=== PATIENT | female | born 1935 | race Caucasian/White ===

== ENCOUNTER → 2018-07-28 | Outpatient (CLI) | payer MEDICARE, BC ==
--- NOTE | 2018-07-28 09:38 | Diagnostic Imaging Report ---
INDICATION: Left hip pain x6 weeks 2 views of the left hip show no fracture or dislocation. Joint spaces well maintained. Articular surfaces are smooth. IMPRESSION: Negative left hip. Dictated by: Dictated on workstation # [id number]
== END ==
LOC: RAD FS 09:22
PROVIDERS: ATTEND Family Medicine
DX: M25.552 Pain in left hip (principal)
CPT/HCPCS: 73502

== ENCOUNTER → 2018-09-14 | Outpatient (CLI) | payer MEDICARE ==
--- NOTE | 2018-09-14 09:11 | Diagnostic Imaging Report ---
INDICATION: Left ankle and foot pain. 3 views were obtained. FINDINGS: The alignment is normal. The plafonds and talar dome are intact. Ankle mortise is symmetric. There is no fracture or dislocation. IMPRESSION: Degenerative changes, however, no acute fracture or dislocation. Dictated by: Dictated on workstation # [id number]
== END ==
LOC: RAD FS 08:37
PROVIDERS: ATTEND Nurse Practitioner
DX: M19.072 Primary osteoarthritis, left ankle and foot (principal)
CPT/HCPCS: 73610

== ENCOUNTER → 2019-10-02 | Outpatient (CLI) | payer MEDICARE ==
--- NOTE | 2019-10-02 12:22 | Diagnostic Imaging Report ---
EXAMINATION: Right shoulder, three views. INDICATION: Right shoulder pain related to fall. COMPARISON: None available. FINDINGS: No fracture or acute osseous abnormality is identified. Bony alignment is maintained. Humeral head is well-seated in the glenohumeral joint. The acromioclavicular joint is intact. Small amorphous calcification adjacent to the greater tuberosity is compatible with calcific tendinopathy. Regional soft tissues are unremarkable. The visualized right lung is clear. IMPRESSION: No acute fracture or dislocation. Dictated by: Dictated on workstation # [id number]
== END ==
LOC: RAD FS 11:33
PROVIDERS: ATTEND Nurse Practitioner
DX: M25.511 Pain in right shoulder (principal)
CPT/HCPCS: 73030

== ENCOUNTER → 2019-10-12 | Outpatient (CLI) | payer MEDICARE ==
[2019-10-12 10:14] LABS: CHLORIDE 104 MMOL/L (98-107); SODIUM 145 MMOL/L (135-145)
[2019-10-12 10:15] LABS: ALANINE AMINOTRANSFERASE 15 U/L (0-55); ALBUMIN 4.2 GM/DL (3.2-4.5); ALKALINE PHOSPHATASE 96 U/L (40-136); BILIRUBIN,TOTAL 0.7 MG/DL (0.1-1.0); BUN/CREATININE RATIO 26; CALCIUM 9.7 MG/DL (8.5-10.1); CARBON DIOXIDE 27 MMOL/L (21-32); CREATININE SERUM 0.74 MG/DL (0.60-1.30); GFR ESTIMATED > 60; GLUCOSE 103 MG/DL (70-105); TOTAL PROTEIN 6.8 GM/DL (6.4-8.2)
[2019-10-12 15:32] LABS: CHOLESTEROL 180 MG/DL (< 200); HDL CHOLESTEROL 61 MG/DL (40-60); TRIGLYCERIDES 84 MG/DL (<150); VLDL CHOLESTEROL 17 MG/DL (5-40)
== END ==
LOC: LAB FS 09:14
PROVIDERS: ATTEND Family Medicine
DX: E78.00 Pure hypercholesterolemia, unspecified (principal); I10 Essential (primary) hypertension
CPT/HCPCS: 36415; 80053; 80061

== ENCOUNTER → 2019-10-15 | Outpatient (CLI) | payer MEDICARE ==
[2019-10-15 10:36] LABS: HEMATOCRIT 44 % (35-52); HEMOGLOBIN 14.7 G/DL (11.5-16.0); MEAN CORPUSCULAR HEMOGLOBIN 31 PG (25-34); MEAN CORPUSCULAR HGB CONC 34 G/DL (32-36); MEAN CORPUSCULAR VOLUME 93 FL (80-99); MEAN PLATELET VOLUME 9.8 FL (7.4-10.4); PLATELET COUNT 281 10^3/uL (130-400); RED CELL DISTRIBUTION WIDTH 12.6 % (10.0-14.5); WHITE BLOOD COUNT 6.1 10^3/uL (4.3-11.0)
[2019-10-15 10:37] LABS: BASOPHILS # (AUTO) 0.1 10^3/uL (0.0-0.1); BASOPHILS % (AUTO) 1 % (0-10); EOSINOPHILS # (AUTO) 0.1 10^3/uL (0.0-0.3); EOSINOPHILS % (AUTO) 2 % (0-10); LYMPHOCYTES # (AUTO) 1.4 X 10^3 (1.0-4.0); LYMPHOCYTES % (AUTO) 23 % (12-44); MONOCYTES # (AUTO) 0.5 X 10^3 (0.0-1.0); MONOCYTES % (AUTO) 8 % (0-12); NEUTROPHILS % (AUTO) 65 % (42-75)
[2019-10-15 15:24] LABS: FREE T4 (FREE THYROXINE) 1.1 NG/DL (0.70-1.48)
== END ==
LOC: LAB FS 09:37
PROVIDERS: ATTEND Family Medicine
DX: R68.83 Chills (without fever) (principal)
CPT/HCPCS: 36415; 84439; 84443; 85025

== ENCOUNTER → 2020-02-14 | Outpatient (CLI) | payer MEDICARE ==
--- NOTE | 2020-02-14 10:58 | Diagnostic Imaging Report ---
Clinical indication: Patient with chronic pain in low back, has gotten worse recently. No known injury. EXAM: X-ray of the lumbar spine, 3 views. COMPARISON: None. FINDINGS: There is a transitional lumbosacral vertebra which will be designated as L5 with prominent bilateral transverse processes. There is a small L5-S1 intervertebral disk space seen. There is no acute lumbar spine fracture. There is subtle grade 1 retrolisthesis of L1 on L2. There is no pars defects seen. There is right curvature of the thoracolumbar spine. There are hypertrophic spurs seen throughout the lumbar spine and lower lumbar spine with facet arthropathy/hypertrophy. There is severe loss of disk space height at the L2-L3 and L4-L5 levels. There is moderate loss of disk space height at the L1-L2 level. Likely radiodense oval-shaped pills overlying the left upper quadrant region. Sacroiliac joints show mild sclerosis. Likely phleboliths seen in the pelvis. IMPRESSION: 1: There is no gross acute lumbar spine fracture. 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 3: There is grade 1 retrolisthesis of L1 on L2. Dictated by: Dictated on workstation # [id number]
== END ==
LOC: RAD FS 09:12
PROVIDERS: ATTEND Nurse Practitioner
DX: M47.816 Spondylosis without myelopathy or radiculopathy, lumbar region (principal); M43.8X5 Other specified deforming dorsopathies, thoracolumbar region; M43.16 Spondylolisthesis, lumbar region
CPT/HCPCS: 72100

== ENCOUNTER → 2020-04-11 | Outpatient (CLI) | payer MEDICARE ==
[2020-04-11 12:03] LABS: BUN/CREATININE RATIO 21; CALCIUM 9.4 MG/DL (8.5-10.1); CARBON DIOXIDE 26 MMOL/L (21-32); CHLORIDE 105 MMOL/L (98-107); CREATININE SERUM 0.73 MG/DL (0.60-1.30); GFR ESTIMATED > 60; GLUCOSE 91 MG/DL (70-105); POTASSIUM 3.5 MMOL/L (3.6-5.0); SODIUM 144 MMOL/L (135-145)
[2020-04-11 12:04] LABS: ALANINE AMINOTRANSFERASE 21 U/L (0-55); ALBUMIN 4.1 GM/DL (3.2-4.5); ALKALINE PHOSPHATASE 85 U/L (40-136); BILIRUBIN,TOTAL 0.7 MG/DL (0.1-1.0); TOTAL PROTEIN 6.6 GM/DL (6.4-8.2)
[2020-04-11 14:46] LABS: CHOLESTEROL 177 MG/DL (< 200); HDL CHOLESTEROL 61 MG/DL (40-60); TRIGLYCERIDES 113 MG/DL (<150); VLDL CHOLESTEROL 23 MG/DL (5-40)
== END ==
LOC: LAB FS 11:23
PROVIDERS: ATTEND Family Medicine
DX: I10 Essential (primary) hypertension (principal); E78.00 Pure hypercholesterolemia, unspecified
CPT/HCPCS: 36415; 80053; 80061

== ENCOUNTER → 2020-10-09 | Outpatient (CLI) | payer MEDICARE ==
[2020-10-09 12:47] LABS: ALKALINE PHOSPHATASE 84 U/L (40-136); BILIRUBIN,TOTAL 0.7 MG/DL (0.1-1.0); BUN/CREATININE RATIO 25; CALCIUM 9.8 MG/DL (8.5-10.1); CARBON DIOXIDE 28 MMOL/L (21-32); CHLORIDE 105 MMOL/L (98-107); CREATININE SERUM 0.84 MG/DL (0.60-1.30); GFR ESTIMATED > 60; GLUCOSE 96 MG/DL (70-105); POTASSIUM 3.8 MMOL/L (3.6-5.0); SODIUM 141 MMOL/L (135-145)
[2020-10-09 12:48] LABS: ALANINE AMINOTRANSFERASE 19 U/L (0-55); ALBUMIN 4.3 GM/DL (3.2-4.5); TOTAL PROTEIN 6.9 GM/DL (6.4-8.2)
[2020-10-09 15:55] LABS: TRIGLYCERIDES 96 MG/DL (<150); VLDL CHOLESTEROL 19 MG/DL (5-40)
[2020-10-09 16:00] LABS: CHOLESTEROL 180 MG/DL (< 200)
[2020-10-09 16:01] LABS: HDL CHOLESTEROL 65 MG/DL (40-60)
== END ==
LOC: LAB FS 11:39
PROVIDERS: ATTEND Family Medicine
DX: I10 Essential (primary) hypertension (principal)
CPT/HCPCS: 36415; 80053; 80061

== ENCOUNTER → 2020-12-22 | Outpatient (CLI) | payer MEDICARE ==
--- NOTE | 2020-12-22 10:42 | Diagnostic Imaging Report ---
INDICATION: Knee pain. No previous. 3 view right knee showed no loose body or evidence of a joint effusion. There is a moderate medial and mild lateral compartmental osteoarthritis. Minimal spurring off the inferior patellar pole. No acute periosteal reaction. No fracture and no articular irregularity. IMPRESSION: Degenerative changes with no joint effusion, loose body, fracture or acute findings. Dictated by: Dictated on workstation # [id number]
== END ==
LOC: RAD FS 09:14
PROVIDERS: ATTEND Nurse Practitioner
DX: M17.11 Unilateral primary osteoarthritis, right knee (principal)
CPT/HCPCS: 73562

== ENCOUNTER → 2021-02-18 | Outpatient (CLI) | payer MEDICARE | END | disposition home or self-care (01) | LOC: PREOP 05:37 | PROVIDERS: ATTEND Orthopaedic Surgery | DX: Z01.818 Encounter for other preprocedural examination (principal) ==

== ENCOUNTER 2021-03-04 07:25 | Day surgery (SDC) | payer MEDICARE ==
--- NOTE | 2021-02-18 12:24 | HISTORY AND PHYSICAL ---
DATE OF SERVICE: ADMISSION HISTORY AND PHYSICAL DATE OF ADMISSION: 03/04/2021. This will be for outpatient surgery on 03/04/2021 for right knee arthroscopy. HISTORY OF PRESENT ILLNESS: The patient is an 85-year-old female with complaints of right knee pain. She has had progressively worsening pain. Ultimately, she underwent an MRI, which revealed evidence of a medial meniscus tear with some degenerative changes noted of her medial compartment. Due to functional impairment and failure to improve with conservative measures, the patient elected to proceed with surgical intervention. REVIEW OF SYSTEMS: No chest pain, no shortness of breath, and no dysuria. PAST MEDICAL HISTORY: Back pain, hyperlipidemia, hypertension, osteoarthritis, hypokalemia, TMJ, Fuchs's esophagitis, and cerebral venous sinus thrombosis. PAST SURGICAL HISTORY: Hysterectomy. FAMILY HISTORY: Noncontributory. PRIMARY CARE PROVIDER: Dr. Esquivel. MEDICATIONS: Benadryl, aspirin, cyclobenzaprine, Flonase, Mobic, atorvastatin, calcium, and potassium. ALLERGIES: SULFA, ENALAPRIL, HYDROCODONE, MEPERIDINE, OXYCODONE, ZITHROMAX, IV DYE, ULTRAM, BEULAH INHIBITORS, DEMEROL, and CEFDINIR. SOCIAL HISTORY: The patient denies alcohol, tobacco use. RADIOGRAPHS: Reveal mild osteoarthritic changes medially. PHYSICAL EXAMINATION: GENERAL: The patient is well-developed, well-nourished, in no acute distress. HEENT: Normocephalic, atraumatic. Pupils are equal, round and reactive to light. Oropharynx is clear. NECK: Supple with no lymphadenopathy. LUNGS: Clear to auscultation bilaterally. HEART: Regular rate and rhythm. ABDOMEN: Soft, nontender, and nondistended. EXTREMITIES: The right knee demonstrates some mild effusion. She has tenderness medially with Ramon's as well as to palpation along her joint line. Range of motion is 0/0/130. No varus or valgus laxity. Negative anterior and posterior drawer. IMPRESSION: Right knee medial meniscus tear with associated chondromalacia. PLAN: Right knee arthroscopy with partial medial meniscectomy and chondroplasty. The risks, benefits, options, ramifications and recovery were discussed at length with the patient. She understands and wishes to proceed. Job ID: [id number] DocumentID: [id number] Dictated Date: 02/18/2021 11:54:12 Tower Hand Date: 02/18/2021 12:24:18 Dictated By: HODAN WILLSON MD
[~2021-03-04] VITALS: Ht 157 cm; Wt 61.7 kg
[2021-03-04] VITALS (11 sets, daily range): BP systolic 135–167; BP diastolic 66–80
[~2021-03-04 07:25] MED LIST: AMLO-250 PO; ASPI-999 PO; ATOR10TA66 PO; CALC-654 PO; MULT-1029 PO; OMG1KC PO; POTA-51 PO
--- OUTSIDE RECORDS SUMMARY | 2021-03-04 07:29 | XMS REPORT | Clinical Summary ---
Author Author [facility] Organization [facility] Address Unknown Phone Unavailable Care Team Providers Care Hospital Admissions Officer Name Role Phone Prasanth Hutchinson MD PCP Unavailable Source Comments Some departments are not documenting in the electronic medical record. If you d o not see the information that you expected, contact Release of Information in [facility] Information Management department at [phone] for further assistan ce in locating additional records.[facility] Allergies Not on File Medications Not on file Active Problems Not on file Social History Date Tobacco Use Types Packs/Day Years Used Never Assessed Sex Assigned at Date Recorded Not on file Last Filed Vital Signs Not on file Plan of Treatment Health Maintenance Due Date Last Done Comments DTAP/TDAP VACCINES (1 - 1953 Tdap) PHYSICAL (COMPREHENSIVE) 1953 EXAM SHINGLES RECOMBINANT 1985 VACCINE (1 of 2) PNEUMONIA (PPSV23) 2000 VACCINE (1 of 1 - PPSV23) INFLUENZA VACCINE 01/04/2021 Results Not on filefrom Last 3 Months
--- OUTSIDE RECORDS SUMMARY | 2021-03-04 07:29 | XMS REPORT | Clinical Summary ---
Author Author [facility] Organization [facility] Address Unknown Phone Unavailable Care Team Providers Care Credit Manager Name Role Phone Maisha Esquivel MD PCP Allergies Not on File Medications Not on file Active Problems Not on file Social History Date Tobacco Use Types Packs/Day Years Used Never Assessed Sex Assigned at Date Recorded Not on file Last Filed Vital Signs Not on file Plan of Treatment Health Maintenance Due Date Last Done Comments Advance Directive has 1935 been filed Medicare Annual Wellness 1935 Td/Tdap# 1935 COVID-19 Vaccine (1) 1947 Zoster Vaccine# (1 of 2) 1985 Advance Directive 2000 Conversation Depression Screening 2000 PHQ-9 # Fall Risk Assessment # 2000 Osteoporosis Screening 2000 Patient Needs Advance 2000 Directive Influenza Vaccine (#1) 2021 03/16/2019, 03/13/2018, 03/11/2017, Additional history exists Pneumococcal Vaccine: 65+ Completed 02/24/2015, Years 05/04/2012 Results Not on filefrom Last 3 Months Insurance Type Payer Benefit Subscriber ID Effective Phone Address Plan / Dates Group Medicare MEDICARE MEDICARE [id number] 2000- [place] PART A B [facility] OUT OF [id number] [id number] AREA resent [id number] Ellie Hollis Personal/F Self [address] [place] (Home) [place], [place] [address] Ellie Hollis Personal/F Self [address] [place] (Home) [place], [place] [address] Advance Directives For more information, please contact: [phone] Patient Record Changer Explanation Type Date Recorded Advance Directives and Living Will Power of Inspector Subassembly Health Care Directive
[2021-03-04] MEDS ORDERED: ceFAZolin INJECTION 1,000 MG in WATER (STERILE) FOR INJECTION 10 ML IV ONE (07:45)
[2021-03-04] MEDS ORDERED: LACTATED RINGERS 1,000 ML IV PRN (07:45)
[2021-03-04] MEDS ORDERED: ONDANSETRON 4 MG (ZOFRAN) ORAL DISSOLVE TAB PO PRN (08:00)
[2021-03-04] MEDS ORDERED: APAP 300 MG/CODEINE 30 MG (TYLENOL #3) TAB PO PRN (08:00)
[2021-03-04] MEDS ORDERED: ONDANSETRON 4 MG/2 ML (SDV) Z0FRAN ONE (08:25)
[2021-03-04] MEDS ORDERED: proPOfol 200 MG/20 ML (DIPRIVAN) VIAL IV ONE (08:25)
[2021-03-04] MEDS ORDERED: LIDOCAINE PF 2% 5 ML (XYLOCAINE) VIAL ONE (08:25)
[2021-03-04] MEDS ORDERED: BUPIVACAINE 0.25% 30 ML (SENSORCAINE) VIAL ONE (09:31)
[2021-03-04] MEDS ORDERED: morphine PF (DURAMORPH) 10 MG/10 ML AMP ONE (09:31)
--- NOTE | 2021-03-04 09:39 | Progress Note-Pre Operative ---
Pre-Operative Progress Note H&P Reviewed The H&P was reviewed, patient examined and no changes noted. Date Seen by Provider: Mar 04, 2021 Time Seen by Provider: :30 Date H&P Reviewed: Mar 04, 2021 Time H&P Reviewed: 09:39 Pre-Operative Diagnosis: right medial meniscus tear and chondromalacia HODAN WILLSON MD Mar 04, 2021 09:39
[2021-03-04] MEDS ORDERED: fentaNYL INJ 100 MCG/2 ML AMP ONE (09:40)
--- NOTE | 2021-03-04 09:41 | Progress Note-Post Operative ---
Post-Operative Progess Note Surgeon (s)/Meat Cutter Apprentice (s) Surgeon HODAN WILLSON MD Meat Cutter Apprentice: Baljeet De Souza Pre-Operative Diagnosis right medial meniscus tear and chondromalacia Post-Operative Diagnosis right medial and lateral meniscus tears and chondromalacia of the patella and medial tibail plateau Procedure & Operative Findings Date of Procedure 03/04/21 Procedure Performed/Findings right knee arthroscopic partial medial and lateral meniscectomies and chondroplasty of patella and medial tibail plateau Anesthesia Type GETA Estimated Blood Loss Estimated blood loss (mL): minimal Specimens/Packing Specimens Removed none Packing: none HODAN WILLSON MD Mar 04, 2021 09:41
[2021-03-04] MEDS ORDERED: SEVOFLURANE (ULTANE) 15 ML INHAL SOLN ONE (10:18)
--- NOTE | 2021-03-04 12:06 | Anesthesia-General Post-Op ---
General Patient Condition Mental Status/LOC: Same as Preop Cardiovascular: Satisfactory Nausea/Vomiting: Absent Respiratory: Satisfactory Pain: Controlled Complications: Absent Post Op Complications Complications None Follow Up Care/Instructions Patient Instructions None needed. Anesthesia/Patient Condition Patient Condition Patient is doing well, no complaints, stable vital signs, no apparent adverse anesthesia problems. No complications reported per nursing. CARMINA BUSTAMANTE CRNA Mar 04, 2021 12:06
--- NOTE | 2021-03-04 13:26 | Physical Therapy Ortho Eval ---
PT Orthopedic Evaluation Type of Surgery Knee Scope Prior Level of Function Current Living Status: Alone Subjective Entry Into Home: Stairs With Railing Steps Into Home: 3 Steps Inside Home: 15 Steps Accessories: Railing Present Motor Control Motor Control: Motor Control WNL ROM ROM: WFL, except focal deficit Strength Strength: WFL Transfer SCALE: Activities may be completed with or without assistive devices. 8-Aoptvowlvq-fgyjhdx completes the activity by him/herself with no assistance from a helper. 5-Set-up or Clean-up Assistance-helper sets up or cleans up; patient completes activity. [place] assists only prior to or following the activity. 4-Supervision or Touching Assistance-helper provides verbal cues and/or touching/steadying and/or contact guard assistance as patient completes activity. Assistance may be provided throughout the activity or intermittently. 3-Partial/Moderate Assistance-helper does LESS THAN HALF the effort. [place] lifts, holds or supports trunk or limbs, but provides less than half the effort. 2-Substantial/Maximal Assistance-helper does MORE THAN HALF the effort. [place] lifts or holds trunk or limbs and provides more than half the effort. 0-Acpbijzwj-vpikoq does ALL the effort. Patient does none of the effort to complete the activity. Or, the assistance of 2 or more helpers is required for the patient to complete the activity. If activity was not attempted, code reason: 7-Patient Refused. 9-Not Applicable-not attempted and the patient did not perform the activity before the current illness, exacerbation or injury. 10-Not Attempted due to Environmental Limitations-(lack of equipment, weather restraints, etc.). 88-Not Attempted due to Medical Conditions or Safety Concerns. Transfers (B, C, W/C) (QC): 6 Gait Gait Assistive Device: Crutches Right Lower Extremity: Right Weight Bearing Status RLE: Weight Bearing/Tolerated Left Lower Extremity: Left Weight Bearing Status LLE: Weight Bearing/Tolerated Gait (QC): 5 Distance (QC): 3=081-09 ft Distance: 100 feet Gait Level of Assist: 5 Treatment Rendered Treatment: Gait Train, Step Train Assessment/Goals Goal Time Frame: 1 Visit Safe Ambulation: Yes Plan Treatment Plan: Discharge Time Time In: 1155 Time Out: 1215 Total Billed Treatment Time: 20 Billed Treatment Time Visit, Zoey Gandara JOHN A PT Mar 04, 2021 13:26
--- NOTE | 2021-03-04 15:50 | OPERATIVE REPORT ---
DATE OF SERVICE: 03/04/2021 PREOPERATIVE DIAGNOSES: 1. Right knee medial meniscus tear. 2. Right knee chondromalacia of the patella. POSTOPERATIVE DIAGNOSES: 1. Right knee medial meniscus tear. 2. Right knee lateral meniscus tear. 3. Right knee chondromalacia of the patella. 4. Right knee chondromalacia of the medial tibial plateau. PROCEDURES: 1. Right knee arthroscopic partial medial meniscectomy. 2. Right knee arthroscopic partial lateral meniscectomy. 3. Right knee arthroscopic chondroplasty of the patella. 4. Right knee arthroscopic chondroplasty of the medial tibial plateau. SURGEON: Louis Willson MD CIRCUS TRAINER: Baljeet De Souza, who assisted throughout the procedure and closed the incisions. ANESTHESIA: General endotracheal by Thao Mulligan CRNA. TOURNIQUET TIME: Nonfocal. ESTIMATED BLOOD LOSS: Minimal. DRAINS: None. COMPLICATIONS: None. POSTOPERATIVE PLAN: Routine arthroscopy protocol. The patient was transferred to the recovery room awake and in stable condition. STATEMENT OF MEDICAL NECESSITY: The patient is an 85-year-old female with complaints of right medial knee pain, catching, locking and swelling. Radiographs revealed minimal arthrosis. It was felt the patient likely had medial meniscus tear with associated chondromalacia. Due to her active lifestyle in the independent living status, she elected to proceed with arthroscopy. Examination under anesthesia revealed range of motion 0/0/130 with negative Eddie, negative anterior and posterior drawer. No varus or valgus laxity and negative pivot shift. ARTHROSCOPIC FINDINGS: The patella demonstrated grade II chondral flaps in a 15 x 15 area centrally. The trochlea demonstrated no significant chondral abnormalities. Medial and lateral gutters were clear. The ACL and PCL were intact. The medial compartment demonstrated a tear of the posterior horn and body of the medial meniscus involving approximately one-third of the posterior horn and body. In addition, there was grade III chondral flap in the posterior aspect of the tibial plateau in an 8 x 8 area. The lateral compartment demonstrated a tear of the body of the meniscus involving approximately one-third of the body. DESCRIPTION OF PROCEDURE: After risks and benefits of procedure were discussed and questions were answered, informed consent was signed and placed on chart. The operative site was confirmed in the preoperative holding area initialed by the surgeon. The patient was then transferred to the operating room and after adequate levels of general endotracheal anesthetic were obtained, a timeout was called, confirming the operative site. Examination under anesthesia was performed with above findings noted. The right lower extremity was prepped and draped in the usual sterile fashion. The knee joint was injected with 60 mL of fluid and standard inferolateral portal was placed for the arthroscope. Under direct visualization, inferior medial portal was created. The menisci and cruciates were carefully probed with the above findings noted. Then, stable chondral flaps on the patella were debrided with shaver back to a stable edge. Scope was redirected into the lateral compartment where the unstable lateral meniscus tear was debrided with a shaver back to a stable edge. Scope was redirected into the medial compartment and the unstable chondral flaps and medial tibial plateau were debrided with a shaver back to a stable edge and the posterior horn and body of the medial meniscus were debrided with a biter and shaver back to a stable edge. This was carefully probed with no further tearing or instability noted. The knee was copiously irrigated. Portal sites were closed with 4-0 nylon in septic fashion. Port sites were infiltrated with plain Marcaine. A soft dressing was applied. The patient was transferred to the recovery room awake and in stable condition. Job ID: [id number] DocumentID: [id number] Dictated Date: 03/04/2021 10:30:27 Automotive Assembler Date: 03/04/2021 15:49:41 Dictated By: LOUIS WILLSON MD
== END 2021-03-04 13:08 | disposition home or self-care (01) ==
LOC: SDC 07:25
PROVIDERS: ATTEND Orthopaedic Surgery
DX: S83.241A Other tear of medial meniscus, current injury, right knee, initial encounter (principal); S83.281A Other tear of lateral meniscus, current injury, right knee, initial encounter; M22.41 Chondromalacia patellae, right knee; I10 Essential (primary) hypertension; E78.5 Hyperlipidemia, unspecified; M19.90 Unspecified osteoarthritis, unspecified site; Z79.899 Other long term (current) drug therapy; Z79.82 Long term (current) use of aspirin
CPT/HCPCS: 87081

== ENCOUNTER → 2021-04-20 | Outpatient (CLI) | payer MEDICARE ==
[2021-04-20 08:58] LABS: ALBUMIN 4.3 GM/DL (3.2-4.5); BILIRUBIN,TOTAL 0.6 MG/DL (0.1-1.0); CREATININE SERUM 0.77 MG/DL (0.60-1.30); POTASSIUM 3.7 MMOL/L (3.6-5.0)
== END ==
LOC: LAB FS 08:22
PROVIDERS: ATTEND Family Medicine
DX: I10 Essential (primary) hypertension (principal)
CPT/HCPCS: 36415; 80053; 80061

== ENCOUNTER → 2021-10-14 | Outpatient (CLI) | payer MEDICARE ==
[2021-10-14 09:30] LABS: ALBUMIN 4.3 GM/DL (3.2-4.5); BILIRUBIN,TOTAL 0.8 MG/DL (0.1-1.0); CALCIUM 9.5 MG/DL (8.5-10.1); CREATININE SERUM 0.72 MG/DL (0.60-1.30); POTASSIUM 3.7 MMOL/L (3.6-5.0)
== END ==
LOC: LAB FS 08:18
PROVIDERS: ATTEND Family Medicine
DX: Z00.01 Encounter for general adult medical examination with abnormal findings (principal); E78.2 Mixed hyperlipidemia; I10 Essential (primary) hypertension
CPT/HCPCS: 36415; 80053; 80061

== ENCOUNTER → 2021-11-20 | Outpatient (CLI) | payer MEDICARE ==
--- NOTE | 2021-11-20 09:20 | Diagnostic Imaging Report ---
Indication: Neck pain. Time of Exam: 8:37 AM 5 views of the cervical spine were obtained. There is some straightening of the normal cervical lordotic curvature. There is minimal retrolisthesis of C5 on C6. There is minimal anterolisthesis of C3 on C4 on the neutral study. Severe degenerative disc disease at C5-C6 and C6-C7 levels is noted with disc space narrowing and marginal spurring. Flexion-extension views were also performed. The flexion view does show minimal increase in anterolisthesis of C3 on C4. This corrects during extension. No other motion is seen within the cervical spine. Odontoid appears intact. IMPRESSION: Cervical spondylosis. There appears to be motion at the C3-C4 level during flexion and extension maneuvers, as described. Dictated by: Dictated on workstation # [id number]
== END ==
LOC: RAD FS 08:25
PROVIDERS: ATTEND Nurse Practitioner
DX: M47.812 Spondylosis without myelopathy or radiculopathy, cervical region (principal)
CPT/HCPCS: 72050

== ENCOUNTER → 2021-12-13 | Outpatient (CLI) | payer MEDICARE | LOC: LAB 07:56 | DX: Z01.812 Encounter for preprocedural laboratory examination (principal); Z20.822 Contact with and (suspected) exposure to COVID-19 | CPT/HCPCS: 87636 ==

== ENCOUNTER → 2022-02-15 | Outpatient (CLI) | payer MEDICARE ==
--- NOTE | 2022-02-15 11:57 | Diagnostic Imaging Report ---
PROCEDURE: CT abdomen and pelvis without contrast. TECHNIQUE: Multiple contiguous axial images were obtained through the abdomen and pelvis without the use of intravenous contrast. Auto Exposure Controls were utilized during the CT exam to meet ALARA standards for radiation dose reduction. INDICATION: Lower abdominal pain, worse in the left lower quadrant. No prior studies are available for comparison. The lung bases are free of acute infiltrates. Liver and gallbladder are unremarkable. There is no biliary duct dilatation. Pancreas and spleen are unremarkable. No adrenal mass is identified. No renal calculi or hydronephrosis is identified. Aorta is calcified but nonaneurysmal. Bowel loops are nonobstructed. There is wall thickening involving the descending colon and near the junction with the sigmoid with surrounding inflammation. Features are consistent with nonspecific colitis/diverticulitis. No fluid collection or free fluid is seen. Bladder is decompressed. Uterus appears to be absent or atrophic. IMPRESSION: Findings consistent with a nonspecific colitis/acute diverticulitis near the junction of the descending colon and sigmoid. No abscess formation or bowel obstruction is identified. Dictated by: Dictated on workstation # [id number]
== END ==
LOC: RAD FS 11:23
PROVIDERS: ATTEND Registered Nurse Emergency
DX: R10.32 Left lower quadrant pain (principal)
CPT/HCPCS: 74176

== ENCOUNTER → 2022-02-15 | Outpatient (CLI) | payer MEDICARE ==
[2022-02-15 11:01] LABS: BASOPHILS # (AUTO) 0.1 10^3/uL (0.0-0.1); BASOPHILS % (AUTO) 0 % (0-10); EOSINOPHILS % (AUTO) 0 % (0-10); HEMATOCRIT 42 % (35-52); HEMOGLOBIN 14.2 g/dL (11.5-16.0); LYMPHOCYTES # (AUTO) 1.4 10^3/uL (1.0-4.0); LYMPHOCYTES % (AUTO) 13 % (12-44); MEAN CORPUSCULAR HEMOGLOBIN 31 pg (25-34); MEAN CORPUSCULAR HGB CONC 34 g/dL (32-36); MEAN CORPUSCULAR VOLUME 93 fL (80-99); MEAN PLATELET VOLUME 9.7 fL (9.0-12.2); MONOCYTES % (AUTO) 9 % (0-12); NEUTROPHILS # (AUTO) 8.7 10^3/uL (1.8-7.8); NEUTROPHILS % (AUTO) 78 % (42-75); PLATELET COUNT 227 10^3/uL (130-400); WHITE BLOOD COUNT 11.2 10^3/uL (4.3-11.0)
[2022-02-15 11:30] LABS: CREATININE SERUM 0.75 MG/DL (0.60-1.30); POTASSIUM 3.4 MMOL/L (3.6-5.0)
[2022-02-15 11:31] LABS: ALBUMIN 3.9 GM/DL (3.2-4.5); BILIRUBIN,TOTAL 1.4 MG/DL (0.1-1.0)
== END ==
LOC: LAB FS 10:49
PROVIDERS: ATTEND Registered Nurse Emergency
DX: I10 Essential (primary) hypertension (principal); R10.32 Left lower quadrant pain
CPT/HCPCS: 36415; 80053; 83690; 85025

== ENCOUNTER 2022-02-22 17:39 | Inpatient (IN) | payer MEDICARE ==
[~2022-02-22] VITALS: Ht 157 cm; Wt 60.7 kg
[~2022-02-22 17:39] MED LIST changes: -CALC1TAB PO; -CALC500T7 PO; -CIPR500T5 PO; -DIPH25TA65 PO; -DOCU100T7 PO; -FEXO180T84 PO; -FLUT9.9S NSEACH; -IBUP200C11 PO; -MELO15TA39 PO; -METR-145 PO; -NAPR220T66 PO; -OLOP2.5D12 OU; -OMEG12002 PO; -POTA-160 PO; -PROP10DR4 OU; -SODI50SP NSEACH
[2022-02-22] MEDS ORDERED: LACTATED RINGERS 1,000 ML IV ONE (18:00)
[2022-02-22] MEDS ORDERED: LIDOCAINE UROJET 2% GEL 10 ML PKG TOP ONE (18:00)
[2022-02-22 18:07] LABS: BASOPHILS # (AUTO) 0.1 10^3/uL (0.0-0.1); BASOPHILS % (AUTO) 1 % (0-10); EOSINOPHILS # (AUTO) 0.1 10^3/uL (0.0-0.3); EOSINOPHILS % (AUTO) 1 % (0-10); HEMATOCRIT 42 % (35-52); LYMPHOCYTES # (AUTO) 1.6 10^3/uL (1.0-4.0); LYMPHOCYTES % (AUTO) 16 % (12-44); MEAN CORPUSCULAR HEMOGLOBIN 31 pg (25-34); MEAN CORPUSCULAR HGB CONC 33 g/dL (32-36); MEAN CORPUSCULAR VOLUME 92 fL (80-99); MEAN PLATELET VOLUME 9.5 fL (9.0-12.2); MONOCYTES # (AUTO) 1.1 10^3/uL (0.0-1.0); MONOCYTES % (AUTO) 11 % (0-12); NEUTROPHILS % (AUTO) 71 % (42-75); PLATELET COUNT 381 10^3/uL (130-400); WHITE BLOOD COUNT 9.9 10^3/uL (4.3-11.0)
[2022-02-22] MEDS ORDERED: ONDANSETRON 4 MG/2 ML (SDV) Z0FRAN IVP ONE (18:15)
[2022-02-22 18:16] LABS: INR 1.1 (0.8-1.4); PROTHROMBIN TIME PATIENT 14.2 SEC (12.2-14.7)
[2022-02-22 18:20] LABS: ALBUMIN 4.1 GM/DL (3.2-4.5); CHLORIDE 103 MMOL/L (98-107); POTASSIUM 3.5 MMOL/L (3.6-5.0); SODIUM 142 MMOL/L (135-145)
[2022-02-22 18:21] LABS: CALCIUM 10.1 MG/DL (8.5-10.1)
[2022-02-22 18:22] LABS: AMYLASE 59 U/L (25-125)
[2022-02-22 18:23] LABS: GLUCOSE 185 MG/DL (70-105)
[2022-02-22 18:24] LABS: CARBON DIOXIDE 23 MMOL/L (21-32)
[2022-02-22 18:25] LABS: BILIRUBIN,TOTAL 0.5 MG/DL (0.1-1.0)
[2022-02-22 18:26] LABS: ALKALINE PHOSPHATASE 89 U/L (40-136); GFR ESTIMATED 31
[2022-02-22 18:27] LABS: BUN/CREATININE RATIO 13
[2022-02-22 18:29] LABS: ALANINE AMINOTRANSFERASE 43 U/L (0-55)
[2022-02-22 18:31] LABS: CREATINE KINASE 175 U/L (29-168); LIPASE 39 U/L (8-78)
[2022-02-22 18:39] LABS: CREATINE KINASE MB 2.4 NG/ML (<6.6)
[2022-02-22 18:40] LABS: BILIRUBIN,URINE NEGATIVE (NEGATIVE); CLARITY,URINE CLEAR; COLOR,URINE YELLOW; GLUCOSE, URINE (UA) NEGATIVE (NEGATIVE); KETONES,URINE NEGATIVE (NEGATIVE); LEUKOCYTE ESTERASE ,URINE NEGATIVE (NEGATIVE); NITRITE,URINE NEGATIVE (NEGATIVE); PH,URINE 5.5 (5-9); PROTEIN,URINE NEGATIVE (NEGATIVE)
[2022-02-22 18:40] LABS: ERYTHROCYTE SEDIMENTATION RATE 17 MM/HR (0-30)
--- NOTE | 2022-02-22 18:43 | ED GI ---
General Chief Complaint: Abdominal/GI Problems Stated Complaint: BELCHING/DRY MOUTH/CONFUSION/NAUSEA/ABD PAIN Nursing Triage Note: PT AMB TO [facility] 2 WITH COMPLAINT OF ABD PAIN AND NOT FEELING WELL. STATES SHE WAS DIAGNOSED WITH DIVERTICULITIS A WEEK AGO AND PUT ON ANTIBIOTICS. STATES STARTED HAVING CHILLS AND MADE APPT. SAW DR RAMIREZ THIS AM AND HAD FLUIDS AND REPEAT CT SCAN. Source of Information: Patient History of Present Illness Date Seen by Provider: Feb 22, 2022 Time Seen by Provider: 17:50 Initial Comments PT ARRIVES VIA POV FROM HOME IN [place] STATES HE HAS NOT BEEN FEELING WELL FOR OVER A WEEK C/O ABDOMINAL PAIN, MOSTLY IN LLQ--PAIN IS GETTING WORSE C/O NAUSEA, NO VOMITING HAD FEVER LAST WEEK STATES SHE FEELS VERY WEAK, FEELS "FUZZY" AND IS HAVING PROBLEMS CONCENTRATING--SHE STATES SHE THINKS THE ANTIBIOTICS ARE MAKING HER FEEL THIS WAY. NO URINARY SYMPTOMS AND VOIDING A NORMAL AMOUNT DECREASED APPETITE, BUT IS EATING A LITTLE BIT, IS DRINKING SOME LIQUIDS C/O DRY MOUTH SEEN BY [employer] CLERK AT DR. RAMIREZ'S OFFICE LAST WEEK AND WAS DX WITH DIVERTICULITIS, HAD OUTPATIENT LAB AND CT SCAN, AND GIVEN RX'S FOR CIPRO AND FLAGYL. RX FOR ZOFRAN WAS SENT 02/19/22. STATES SHE WAS BETTER LAST TUESDAY, THEN STARTED FEELING BAD LAST TUESDAY AND HAS BEEN "GOING [place]" SINCE THEN. STATES SHE HAS BEEN HAVING CHILLS TODAY WENT BACK TO SEE [employer] CLERK AT DR. RAMIREZ'S OFFICE TODAY AND WAS GIVEN IV FLUIDS, REPEAT OUTPATIENT LAB AND CT SCAN AND PRESCRIBED AUGMENTIN TODAY, PER MED RECONCILIATION PT STATES "NO ONE EVER CALLED ME" AND SHE DOES NOT KNOW ANY OF HER TEST RESULTS, AND DID NOT KNOW THAT A NEW PRESCRIPTION WAS SENT IN THEN CAME HERE TONIGHT FROM [place] BECAUSE "SHE WANTS TO KNOW WHAT'S GOING ON" PT HAS NOT TAKEN ANYTHING FOR PAIN OR NAUSEA PT HAS HAD COVID-19 VACCINES X 4 PCP: DR. RAMIREZ [facility] Allergies and Home Medications Allergies Coded Allergies: Sulfa (Sulfonamide Antibiotics) (Unverified Allergy, Unknown, 02/24/21) iodine (Unverified Allergy, Unknown, 02/24/21) tramadol (Unverified Allergy, Unknown, 02/24/21) BEULAH Inhibitors (Unverified Adverse Reaction, Unknown, 02/24/21) azithromycin (Unverified Adverse Reaction, Unknown, 02/24/21) cefdinir (Unverified Adverse Reaction, Unknown, 02/24/21) hydrocodone (Unverified Adverse Reaction, Unknown, 02/24/21) meperidine (Unverified Adverse Reaction, Unknown, 02/24/21) oxycodone (Unverified Adverse Reaction, Unknown, 02/24/21) Uncoded Allergies: IV CONTRAST (Allergy, Unknown, REDNESS, 02/22/22) REDNESS PER PT Patient Home Medication List Home Medication List Reviewed: Yes Amlodipine Besylate (Amlodipine Besylate) 5 Mg Tablet, 5 MG PO DAILY, (Reported) Entered as Reported by: MARILYN SHER on 02/24/21 135 Aspirin (Aspirin) 81 Mg Tab.chew, 81 MG PO DAILY, (Reported) Entered as Reported by: MARILYN SHER on 02/24/21 135 Atorvastatin Calcium (Atorvastatin Calcium) 10 Mg Tablet, 10 MG PO , ( Reported) Entered as Reported by: MARILYN SHER on 02/24/21 135 Calcium Carbonate/Vitamin D3 (Calcium 500 + D Tablet) 1 Each Tablet, 1 EACH PO BID, (Reported) Entered as Reported by: MARILYN SHER on 02/24/21 135 Multivit-Min/FA/Lycopene/Lut (Centrum Silver Tablet) 1 Each Tablet, 1 EACH PO DAILY, (Reported) Entered as Reported by: MARILYN SHER on 02/24/21 135 [place] 3 Polyunsat Fatty Acids (Fish Oil 1,000 mg Capsule) 1,000 Mg Cap, 1,000 MG PO DAILY, (Reported) Entered as Reported by: MARILYN SHER on 02/24/21 135 Potassium Chloride (Potassium Chloride) 20 Meq Tablet.er, 20 MEQ PO BID, (Reported) Entered as Reported by: MARILYN SHER on 02/24/21 135 Review of Systems Review of Systems Constitutional: see HPI, chills, malaise, weakness EENTM: No Symptoms Reported Respiratory: No Symptoms Reported Cardiovascular: No Symptoms Reported Gastrointestinal: See HPI, Abdominal Pain; Denies Constipated, Denies Diarrhea; Nausea, Poor Appetite; Denies Vomiting Genitourinary: No Symptoms Reported Musculoskeletal: no symptoms reported; No back pain Skin: no symptoms reported Psychiatric/Neurological: No Symptoms Reported Endocrine: No Symptoms Reported Hematologic/Lymphatic: No Symptoms Reported Past [id number]-Uhssir-Fwzexj Hx Patient Social History Tobacco Use?: No Use of E-Cig and/or Vaping dev: No Substance use?: No Alcohol Use?: No Pt feels they are or have been: No Immunizations Up To Date First/Initial COVID19 Vaccinat: 07/27 Second COVID19 Vaccination Jp: 08/24 Third COVID19 Vaccination Date: 07/27 Seasonal Allergies Seasonal Allergies: Yes Past Medical History Surgeries: Yes (R THUMB RESECTION, KNEE ARTHROSCOPY, PROGRESSIVE PTERYGIUM REMOVAL) Appendectomy, Eye Surgery, Hysterectomy, Oophorectomy, Orthopedic, Tonsillectomy Respiratory: No Cardiac: Yes Hypertension Neurological: No Reproductive Disorders: Yes Female Reproductive Disorders: Menstrual Problems 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, Menopausal Genitourinary: No Gastrointestinal: Yes Diverticulosis, Hiatal Hernia, Irritable Bowel Musculoskeletal: Yes (HAND CONTRACTURES) Arthritis, Contracture Endocrine: No HEENT: Yes Cataract Hearing Impairment: Hard of Hearing, Bilateral Hearing Aide Cancer: No Psychosocial: No Integumentary: No Blood Disorders: No Family Medical History PAST SURGICAL HISTORY: -BILATERAL CATARACTS -RIGHT EYE SURGERIES X 2 FOR PTERYGIUM -RIGHT WRIST/THUMB SURGERY -BILATERAL KNEE SCOPES/MENISCUS REPAIRS -HYSTERECTOMY/BILATERAL SALPINGO-OOPHORECTOMY/APPENDECTOMY Physical Exam Vital Signs Vital Signs - First Documented 02/22/22 17:47 Temp 36.8 Pulse 92 Resp 16 B/P (MAP) 152/114 (127) Pulse Ox 97 O2 Delivery Room Air Capillary Refill : Less Than 3 Seconds Height/Weight/BMI Height: '" Weight: lbs. oz. kg; 24.00 BMI Method: General Appearance: WD/WN, no apparent distress HEENT: PERRL/EOMI Neck: normal inspection Respiratory: normal breath sounds, no respiratory distress, no accessory muscle use Cardiovascular: regular rate, rhythm, no murmur Gastrointestinal: normal bowel sounds, soft; No distended, No guarding, No rebound; tenderness (LLQ); No hernia, No mass Extremities: normal inspection, no pedal edema, normal capillary refill Back: no CVA tenderness Neurologic/Psychiatric: analysis reporting developer II-XII nml as tested, no motor/sensory deficits, alert, normal mood/affect, oriented x 3 Skin: normal color, warm/dry Focused Exam Sepsis Stage: Ruled Out Reason for ruling out sepsis: DOES NOT MEET CRITERIA Possible Source: GI Tract/Intra-Abdominal Lactate Level 02/22/22 18:08: Lactic Acid Level 1.54 Time of Focused Exam: 19:15 Respiratory: Normal Breath Sounds, No Accessory Muscle Use, No Respiratory Distress Cardiovascular: Regular Rate, Rhythm, No Murmur Capillary Refill: Less Than 3 Seconds Skin: normal color, warm/dry Lactic Acid Level Laboratory Tests Test 02/22/22 18:08 Lactic Acid Level 1.54 MMOL/L (0.50-2.00) Within 3hrs of presentation: Admin fluids, Admin ABX, Blood cultures prior to ABX's, Focus exam, Lactate level Progress/Results/Core Measures Results/Orders Lab Results Laboratory Tests Test 02/22/22 17:52 02/22/22 18:08 02/22/22 18:31 Range/Units White Blood Count 9.9 4.3-11.0 10^3/uL Red Blood Count 4.57 3.80-5.11 10^6/uL Hemoglobin 14.0 11.5-16.0 g/dL Hematocrit 42 35-52 % Mean Corpuscular Volume 92 80-99 fL Mean Corpuscular Hemoglobin 31 25-34 pg Mean Corpuscular Hemoglobin Concent 33 32-36 g/dL Red Cell Distribution Width 12.6 10.0-14.5 % Platelet Count 381 130-400 10^3/uL Mean Platelet Volume 9.5 9.0-12.2 fL Immature Granulocyte % (Auto) 0 % Neutrophils (%) (Auto) 71 42-75 % Lymphocytes (%) (Auto) 16 12-44 % Monocytes (%) (Auto) 11 0-12 % Eosinophils (%) (Auto) 1 0-10 % Basophils (%) (Auto) 1 0-10 % Neutrophils # (Auto) 7.0 1.8-7.8 10^3/uL Lymphocytes # (Auto) 1.6 1.0-4.0 10^3/uL Monocytes # (Auto) 1.1 H 0.0-1.0 10^3/uL Eosinophils # (Auto) 0.1 0.0-0.3 10^3/uL Basophils # (Auto) 0.1 0.0-0.1 10^3/uL Immature Granulocyte # (Auto) 0.0 0.0-0.1 10^3/uL Erythrocyte Sedimentation Rate 17 0-30 MM/HR Prothrombin Time 14.2 12.2-14.7 SEC INR Comment 1.1 0.8-1.4 Sodium Level 142 135-145 MMOL/L Potassium Level 3.5 L 3.6-5.0 MMOL/L Chloride Level 103 98-107 MMOL/L Carbon Dioxide Level 23 21-32 MMOL/L Anion Gap 16 H 5-14 MMOL/L Blood Urea Nitrogen 21 H 7-18 MG/DL Creatinine 1.60 H 0.60-1.30 MG/DL Estimat Glomerular Filtration Rate 31 BUN/Creatinine Ratio 13 Glucose Level 185 H 70-105 MG/DL Calcium Level 10.1 8.5-10.1 MG/DL Corrected Calcium 10.0 8.5-10.1 MG/DL Magnesium Level 2.0 1.6-2.4 MG/DL Total Bilirubin 0.5 0.1-1.0 MG/DL Aspartate Amino Transf (AST/SGOT) 38 H 5-34 U/L Alanine Aminotransferase (ALT/SGPT) 43 0-55 U/L Alkaline Phosphatase 89 40-136 U/L Total Creatine Kinase 175 H 29-168 U/L Creatine Kinase MB 2.4 <6.6 NG/ML Myoglobin 85.8 10.0-92.0 NG/ML Troponin I < 0.028 <0.028 NG/ML C-Reactive Protein High Sensitivity 1.65 H 0.00-0.50 MG/DL Total Protein 7.0 6.4-8.2 GM/DL Albumin 4.1 3.2-4.5 GM/DL Amylase Level 59 25-125 U/L Lipase 39 8-78 U/L Procalcitonin 0.07 <0.10 NG/ML Lactic Acid Level 1.54 0.50-2.00 MMOL/L Influenza Type A (RT-PCR) Not Detected Not Detecte Influenza Type B (RT-PCR) Not Detected Not Detecte SARS-CoV-2 RNA (RT-PCR) Not Detected Not Detecte Urine Color YELLOW Urine Clarity CLEAR Urine pH 5.5 5-9 Urine Specific [place] <=1.005 1.016-1.022 Urine Protein NEGATIVE NEGATIVE Urine Glucose (UA) NEGATIVE NEGATIVE Urine Ketones NEGATIVE NEGATIVE Urine Nitrite NEGATIVE NEGATIVE Urine Bilirubin NEGATIVE NEGATIVE Urine Urobilinogen 0.2 < = 1.0 MG/DL Urine Leukocyte Esterase NEGATIVE NEGATIVE Urine RBC (Auto) NEGATIVE NEGATIVE Urine RBC NONE /HPF Urine WBC NONE /HPF Urine Squamous Epithelial Cells NONE /HPF Urine Crystals NONE /LPF Urine Bacteria NEGATIVE /HPF Urine Casts NONE /LPF Urine Mucus NEGATIVE /LPF Urine Culture Indicated CULTURE PENDING My Orders Orders - BUFFY SWAIN DO Ed Iv/Invasive Line Start (02/22/22 17:52) Amylase (02/22/22:52) Cbc With Automated Diff (02/22/22:52) Comprehensive Metabolic Panel (02/22/22:52) Creatine Kinase (02/22/22:52) Creatine Kinase Mb (02/22/22:52) Hs C Reactive Protein (02/22/22:) Lactic Acid Analyzer (02/22/22:52) Lipase (02/22/22:52) Magnesium (02/22/22:52) Procalcitonin (Pct) (02/22/22:52) Ua Culture If Indicated (02/22/22:52) Erythrocyte Sedimentation Rate (02/22/22:52) Myoglobin Serum (02/22/22:52) Troponin I [place] (02/22/22:52) Blood Culture (02/22/22:52) Urine Culture (02/22/22:52) Protime With Inr (02/22/22:52) Chest 1 View, Ap/Pa Only (02/22/22:52) Ed Iv/Invasive Line Start (02/22/22:52) Ed Iv/Invasive Line Start (02/22/22 17:52) Vital Signs Adult Sepsis Patie Q15M (02/22/22 17:52) O2 (02/22/22:52) Remove Rings In Anticipation O (02/22/22:52) Covid 19 Inhouse Test (02/22/22:52) Influenza A And B By Pcr (02/22/22:52) Isolation Central Supply Req (02/22/22 17:52) Catheter(Urinary) Insert & Ass 03,15 (02/22/22 17:52) Ed Iv/Invasive Line Start (02/22/22 17:52) Lactated Ringers (Lr 1000 Ml Iv Solution (02/22/22 18:00) Lidocaine 2% (Urojet) (Xylocaine Urojet) (02/22/22 18:00) Ondansetron Injection (Zofran Injectio (02/22/22 18:15) Medications Given in ED Current Medications Medications Dose Ordered Sig/Monica Route Start Time Stop Time Status Last Admin Dose Admin Lactated Ringer's 1,000 ml @ 0 mls/hr Q0M ONCE IV 02/22/22 18:00 02/22/22 18:01 DC 02/22/22 18:11 1,000 MLS/HR Lidocaine HCl 10 ml ONCE ONCE TOP 02/22/22 18:00 02/22/22 18:01 DC 02/22/22 18:23 10 ML Ondansetron HCl 4 mg ONCE ONCE IVP 02/22/22 18:15 02/22/22 18:16 DC 02/22/22 18:19 4 MG Vital Signs/I&O 02/22/22 17:47 Temp 36.8 Pulse 92 Resp 16 B/P (MAP) 152/114 (127) Pulse Ox 97 O2 Delivery Room Air Blood Pressure Mean: 127 Progress Progress Note : Progress Note SEPSIS PROTOCOL INITIATED GIVEN IV FLUIDS AND ZOFRAN PT DECLINES PAIN MEDICATION NO DETERIORATION IN PT'S CONDITION DURING ER STAY Diagnostic Imaging Comments CXR--PER RADIOLOGIST REPORT AT 1846 FINDINGS: Lungs/pleura: Lungs are clear. There is no pneumothorax. There is no pleural effusion. Mediastinum: Unremarkable. Pulmonary vasculature: Unremarkable. Heart: Unremarkable. Bones/extrathoracic soft tissue: Unremarkable. IMPRESSION: There is no radiographic evidence of acute cardiopulmonary process. CT ABDOMEN/PELVIS--DONE AN OUTPATIENT EARLIER TODAY" FINDINGS: Limited views of the lower thorax are unremarkable. The liver is normal without focal lesion. There is no biliary ductal dilation. Gallbladder is normal. Pancreas is normal. Spleen is normal. Adrenal glands are normal. The kidneys are normal. There is no hydronephrosis. Urinary bladder is normal. There is improving mild diverticulitis of the descending colon. There are few foci of gas adjacent to the previously seen inflamed diverticulum which may represent a small amount of contained perforation. Overall, the inflammatory process has significantly improved and no abscess is seen. No free fluid or air. No abdominal or pelvic lymphadenopathy. Aorta is normal in caliber without aneurysm. There are no suspicious osseous lesions. IMPRESSION: 1. Improving diverticulitis of the descending colon with a few small locules of gas adjacent to the previously seen inflamed diverticulum, possibly representing a small contained perforation. However, the inflammation has significantly improved and no drainable fluid collection or intraperitoneal perforation is seen. Reviewed: Reviewed by Me Departure Communication (Admissions) 1917--CALLED DR. DA SILVA, SURGEON [place]. MESSAGE LEFT ON CELL. 1929--SPOKE WITH DR. DA SILVA. ADVISED TO ADMIT TO HOSPITALIST, KEEP NPO. 1937--SPOKE WITH DR. SOLOMON, HOSPITALIST. ACCEPTS PT FOR ADMIT 2004--DR. DA SILVA HERE TO SEE PT Impression Primary Impression: DIVERTICULITIS WITH CONTAINED PERFORATION Disposition: ADMITTED INPATIENT Condition: Stable Admissions Decision to Admit Reason: Admit from ER (General) Decision to Admit/Date: Feb 22, 2022 Time/Decision to Admit Time: 19:30 Departure-Patient Inst. Referrals: NATAN RAMIREZ MD (PCP/Family) Primary Care Physician BUFFY SWAIN DO Feb 22, 2022 18:43
--- NOTE | 2022-02-22 18:43 | Diagnostic Imaging Report ---
CLINICAL INDICATION: Patient with weakness. EXAM: Portable chest x-ray upright view. COMPARISON: None. FINDINGS: Lungs/pleura: Lungs are clear. There is no pneumothorax. There is no pleural effusion. Mediastinum: Unremarkable. Pulmonary vasculature: Unremarkable. Heart: Unremarkable. Bones/extrathoracic soft tissue: Unremarkable. IMPRESSION: There is no radiographic evidence of acute cardiopulmonary process. Dictated by: Dictated on workstation # [id number]
[2022-02-22 18:48] LABS: BACTERIA,URINE NEGATIVE /HPF
[2022-02-22] MEDS ORDERED: metroNIDAZOLE 500MG/100ML IVPB 100 ML IV ONE (19:45)
[2022-02-22] MEDS ORDERED: CIPROFLOXACIN IV 400MG/200ML 200 ML IV ONE (19:45)
[2022-02-22] MEDS ORDERED: fentaNYL INJ 100 MCG/2 ML AMP IV PRN (21:30)
[2022-02-22] MEDS: ONDANSETRON 4 MG/2 ML (SDV) Z0FRAN IV PRN (22:31)
--- NOTE | 2022-02-22 22:39 | Consultation - Surgery ---
History of Present Illness History of Present Illness Patient Consulted On(marlena/time) 02/22/22 22:28 Date Seen by Provider: Feb 22, 2022 Time Seen by Provider: 21:33 History of Present Illness Consult requested by Dr. Rutledge. Patient is a 86-year-old female who has been having problems for about 1 week. She was having abdominal pain that was in the left lower quadrant. Dull achy type pain. No radiation of the pain. She states that she went to see Dr. Esquivel nurse practitioner and was diagnosed with diverticulitis. This was demonstrated by CT scan. She was started on antibiotics and continued to improve. Last she started having more abdominal pain and continued to decline over the weekend. She was receiving today and had a repeat CAT scan demonstrating improved inflammation in the area of where her diverticulitis was but now there is a few foci of air outside of the colon suggestive of microperforation. Patient has had nausea has been ongoing. She has had a little bit of chills. Just overall not feeling better. She states that she is continue to decline since she feels. She was unable to get these results today therefore she drove to the emergency department with her friend to be further evaluated. Patient has not had much of an appetite. Otherwise not having any other complaints. Denies fever sweats shortness of breath or chest pain. Is having occasional chills she states. Allergies and Home Medications Allergies Coded Allergies: Sulfa (Sulfonamide Antibiotics) (Unverified Allergy, Unknown, 02/24/21) iodine (Unverified Allergy, Unknown, 02/24/21) tramadol (Unverified Allergy, Unknown, 02/24/21) BEULAH Inhibitors (Unverified Adverse Reaction, Unknown, 02/24/21) azithromycin (Unverified Adverse Reaction, Unknown, 02/24/21) cefdinir (Unverified Adverse Reaction, Unknown, 02/24/21) hydrocodone (Unverified Adverse Reaction, Unknown, 02/24/21) meperidine (Unverified Adverse Reaction, Unknown, 02/24/21) oxycodone (Unverified Adverse Reaction, Unknown, 02/24/21) Uncoded Allergies: IV CONTRAST (Allergy, Unknown, REDNESS, 02/22/22) REDNESS PER PT Patient Home Medication List Home Medication List Reviewed: Yes Amlodipine Besylate (Amlodipine Besylate) 5 Mg Tablet, 5 MG PO DAILY, (Reported) Entered as Reported by: MARILYN SHER on 02/24/21 135 Aspirin (Aspirin) 81 Mg Tab.chew, 81 MG PO DAILY, (Reported) Entered as Reported by: MARILYN SHER on 02/24/21 135 Atorvastatin Calcium (Atorvastatin Calcium) 10 Mg Tablet, 10 MG PO ---, (Reported) Entered as Reported by: MARILYN SHER on 02/24/21 135 Calcium Carbonate/Vitamin D3 (Calcium 500 + D Tablet) 1 Each Tablet, 1 EACH PO BID, (Reported) Entered as Reported by: MARILYN SHER on 02/24/211355 Multivit-Min/FA/Lycopene/Lut (Centrum Silver Tablet) 1 Each Tablet, 1 EACH PO DAILY, (Reported) Entered as Reported by: MARILYN SHER on 02/24/211355 [place] 3 Polyunsat Fatty Acids (Fish Oil 1,000 mg Capsule) 1,000 Mg Cap, 1,000 MG PO DAILY, (Reported) Entered as Reported by: MARILYN SHER on 02/24/211355 Potassium Chloride (Potassium Chloride) 20 Meq Tablet.er, 20 MEQ PO BID, (Reported) Entered as Reported by: MARILYN SHER on 02/24/211355 Past [id number]-[id number]-Mhhjfu Hx Patient Social History Smoking Status: Never a Smoker 2nd Hand Smoke Exposure: Yes Recent Hopitalizations: No Alcohol Use?: No Have you traveled recently?: No Immunizations Up To Date Date of Pneumonia Vaccine: Jul 27, 2011 Seasonal Allergies Seasonal Allergies: Yes Surgeries History of Surgeries: Yes (R THUMB RESECTION, KNEE ARTHROSCOPY, PROGRESSIVE PTERYGIUM REMOVAL) Surgeries: Appendectomy, Eye Surgery, Hysterectomy, Oophorectomy, Orthopedic, Tonsillectomy Respiratory History of Respiratory Disorde: No Cardiovascular History of Cardiac Disorders: Yes Cardiac Disorders: Hypertension Neurological History of Neurological Disord: No Reproductive System Hx Reproductive Disorders: Yes Female Reproductive Disorders: Menstrual Problems 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, 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 Genitourinary History of Genitourinary Disor: No Gastrointestinal History of Gastrointestinal Di: Yes Gastrointestinal Disorders: Diverticulosis, Hiatal Hernia, Irritable Bowel Musculoskeletal History of Musculoskeletal Dis: Yes (HAND CONTRACTURES) Musculoskeletal Disorders: Arthritis, Contracture Endocrine History of Endocrine Disorders: No HEENT History of HEENT Disorders: Yes HEENT Disorders: Cataract Hearing Impairment: Hard of Hearing, Bilateral Hearing Aide Cancer History of Cancer: No Psychosocial History of Psychiatric Problem: No Integumentary History of Skin or Integumenta: No Blood Transfusions History of Blood Disorders: No Reviewed Nursing Assessment Reviewed/Agree w Nursing PMH: Yes Family Medical History Significant Family History: No Pertinent Family Hx Review of Systems-General Constitutional: chills; No fever EENTM: No blurred vision, No double vision Respiratory: No cough, No dyspnea on exertion Cardiovascular: No chest pain, No palpitations Gastrointestinal: abdominal pain (LLQ), nausea; No vomiting Genitourinary: No decreased output, No discharge Musculoskeletal: No back pain, No joint pain Skin: No change in color, No change in hair/nails Psychiatric/Neurological: Denies Anxiety, Denies Depressed, Denies Emotional Problems All Other Systems Reviewed Negative Unless Noted: Yes (Negative excepted noted.) Physical Exam-General Problems Physical Exam Vital Signs Vital Signs - First Documented 02/22/22 17:47 Temp 36.8 Pulse 92 Resp 16 B/P (MAP) 152/114 (127) Pulse Ox 97 O2 Delivery Room Air Capillary Refill : Less Than 3 Seconds General Appearance: WD/WN, no apparent distress HEENT: PERRL/EOMI, normal ENT inspection Neck: non-tender, supple Respiratory: chest non-tender, no respiratory distress, no accessory muscle use Cardiovascular: regular rate, rhythm, no JVD Gastrointestinal: soft, tenderness (Left lower quadrant) Rectal: deferred Back: normal inspection, no CVA tenderness Extremities: non-tender, normal inspection Neurologic/Psychiatric: alert, normal mood/affect, oriented x 3 Skin: normal color, warm/dry Lymphatic: no adenopathy Data Review Labs Laboratory Tests 02/22/22 17:52: White Blood Count 9.9, Red Blood Count 4.57, Hemoglobin 14.0, Hematocrit 42, Mean Corpuscular Volume 92, Mean Corpuscular Hemoglobin 31, Mean Corpuscular Hemoglobin Concent 33, Red Cell Distribution Width 12.6, Platelet Count 381, Mean Platelet Volume 9.5, Immature Granulocyte % (Auto) 0, Neutrophils (%) (Auto) 71, Lymphocytes (%) (Auto) 16, Monocytes (%) (Auto) 11, Eosinophils (%) (Auto) 1, Basophils (%) (Auto) 1, Neutrophils # (Auto) 7.0, Lymphocytes # (Auto) 1.6, Monocytes # (Auto) 1.1H, Eosinophils # (Auto) 0.1, Basophils # (Auto) 0.1, Immature Granulocyte # (Auto) 0.0, Erythrocyte Sedimentation Rate 17, Prothrom bin Time 14.2, INR Comment 1.1, Sodium Level 142, Potassium Level 3.5L, Chloride Level 103, Carbon Dioxide Level 23, Anion Gap 16H, Blood Urea Nitrogen 21H, Creatinine 1.60H, Estimat Glomerular Filtration Rate 31, BUN/Creatinine Ratio 13, Glucose Level 185H, Calcium Level 10.1, Corrected Calcium 10.0, Magnesium Level 2.0, Total Bilirubin 0.5, Aspartate Amino Transf (AST/SGOT) 38H, Alanine Aminotransferase (ALT/SGPT) 43, Alkaline Phosphatase 89, Total Creatine Kinase 175H, Creatine Kinase MB 2.4, Myoglobin 85.8, Troponin I < 0.028, C-Reactive Protein High Sensitivity 1.65H, Total Protein 7.0, Albumin 4.1, Amylase Level 59, Lipase 39, Procalcitonin 0.07 02/22/22 18:08: Lactic Acid Level 1.54, Influenza Type A (RT-PCR) Not Detected, Influenza Type B (RT-PCR) Not Detected, SARS-CoV-2 RNA (RT-PCR) Not Detected 02/22/22 18:31: Urine Color YELLOW, Urine Clarity CLEAR, Urine pH 5.5, Urine Specific [place] <=1.005, Urine Protein NEGATIVE, Urine Glucose (UA) NEGATIVE, Urine Ketones NEGATIVE, Urine Nitrite NEGATIVE, Urine Bilirubin NEGATIVE, Urine Urobilinogen 0.2, Urine Leukocyte Esterase NEGATIVE, Urine RBC (Auto) NEGATIVE, Urine RBC NONE, Urine WBC NONE, Urine Squamous Epithelial Cells NONE, Urine Crystals NONE, Urine Bacteria NEGATIVE, Urine Casts NONE, Urine Mucus NEGATIVE, Urine Culture Indicated CULTURE PENDING Assessment/Plan Assessment/Plan Assessment/Plan 86-year-old female with left lower quadrant abdominal pain Diverticulitis with microperforation Nausea. Patient admitted to medicine service. She is NPO. IV hydration. Pain control. Patient on IV antibiotics Cipro and Flagyl. Repeat labs in the morning. Overall appearance from previous CAT scan does show improvement except now has a couple foci of free air likely outside of the lumen. She is not very tender on exam so we will try conservative measures. Would recommend colonoscopy on outpatient basis if no surgical intervention needed at this time during hospital stay. Patient understands and agrees with plan. GIOVANA DA SILVA DO Feb 22, 2022 22:39
[2022-02-22] MEDS: D5 1/2 NS W/KCL 20 MEQ/L 1,000 ML IV SCH (23:21)
[2022-02-23] VITALS (7 sets, daily range): BP systolic 138–166; BP diastolic 67–80
[2022-02-23] MEDS: D5 1/2 NS W/KCL 20 MEQ/L 1,000 ML IV SCH ×4 (05:46→22:06)
[2022-02-23 05:54] LABS: BASOPHILS # (AUTO) 0.1 10^3/uL (0.0-0.1); BASOPHILS % (AUTO) 1 % (0-10); EOSINOPHILS # (AUTO) 0.1 10^3/uL (0.0-0.3); EOSINOPHILS % (AUTO) 1 % (0-10); HEMATOCRIT 42 % (35-52); LYMPHOCYTES # (AUTO) 1.4 10^3/uL (1.0-4.0); LYMPHOCYTES % (AUTO) 16 % (12-44); MEAN CORPUSCULAR HEMOGLOBIN 31 pg (25-34); MEAN CORPUSCULAR HGB CONC 34 g/dL (32-36); MEAN CORPUSCULAR VOLUME 92 fL (80-99); MEAN PLATELET VOLUME 9.5 fL (9.0-12.2); MONOCYTES % (AUTO) 12 % (0-12); NEUTROPHILS # (AUTO) 6.1 10^3/uL (1.8-7.8); NEUTROPHILS % (AUTO) 70 % (42-75); PLATELET COUNT 360 10^3/uL (130-400); WHITE BLOOD COUNT 8.7 10^3/uL (4.3-11.0)
[2022-02-23 06:13] LABS: ALBUMIN 3.7 GM/DL (3.2-4.5); BILIRUBIN,TOTAL 0.6 MG/DL (0.1-1.0); CALCIUM 9.5 MG/DL (8.5-10.1); CREATININE SERUM 1.44 MG/DL (0.60-1.30); POTASSIUM 3.7 MMOL/L (3.6-5.0); TOTAL PROTEIN 6.4 GM/DL (6.4-8.2)
[2022-02-23] MEDS: ONDANSETRON 4 MG/2 ML (SDV) Z0FRAN IV PRN (06:46)
--- NOTE | 2022-02-23 06:51 | Progress Note - Surgery ---
JAYY CARRANZA 02/23/22 0651: Subjective Date Seen by a Provider: Feb 23, 2022 Time Seen by a Provider: 06:46 Subjective/Events-last exam Patient is awake and alert in her bed this morning, no family at bedside. Patient states that she is still having chills, slightly more so than last night. Patient also reports some mild LLQ pain with slight tenderness on palpation. Patient reports that her nausea has remained constant but she has not had any vomiting. Review of Systems General: Chills; No Night Sweats HEENT: No Visual Changes, No Eye Pain Pulmonary: No Dyspnea, No Cough Cardiovascular: No: Chest Pain, Palpitations Gastrointestinal: Nausea, Abdominal Pain (LLQ); No: Vomiting Genitourinary: No Dysuria, No Frequency Musculoskeletal: No: neck pain, shoulder pain Neurological: No: Numbness, Incoordination Focused Exam Lactate Level 02/22/22 18:08: Lactic Acid Level 1.54 Time of Focused Exam: 19:15 Objective Exam Vital Signs Date Time Temp Pulse Resp B/P (MAP) Pulse Ox O2 Delivery O2 Flow Rate FiO2 02/23/22 04:30 36.7 87 18 152/74 (100) 96 Room Air 02/23/22 01:05 77 02/23/22 00:32 36.8 88 20 163/73 (103) 96 Room Air 02/22/22 22:45 95 02/22/22 20:50 Room Air 02/22/22 20:40 92 153/67 96 Room Air 02/22/22 17:47 36.8 92 16 152/114 (127) 97 Room Air I & O 02/23/22 07:00 Intake Total 1300 ml Output Total 2625 ml Balance -1325 ml Capillary Refill : Less Than 3 Seconds General Appearance: No Apparent Distress, WD/WN, Anxious HEENT: PERRL/EOMI, Pharynx Normal Neck: Non Tender, Supple Respiratory: Normal Breath Sounds, No Accessory Muscle Use, No Respiratory Distress Cardiovascular: Regular Rate, Rhythm, No Murmur Gastrointestinal: soft, tenderness (Left lower quadrant) Extremity: Normal Capillary Refill, Non Tender Neurologic/Psychiatric: Alert, Oriented x3 Skin: Normal Color, Warm/Dry Lymphatic: No Adenopathy Results Lab Laboratory Tests 02/22/22 17:52: White Blood Count 9.9, Red Blood Count 4.57, Hemoglobin 14.0, Hematocrit 42, Mean Corpuscular Volume 92, Mean Corpuscular Hemoglobin 31, Mean Corpuscular Hemoglobin Concent 33, Red Cell Distribution Width 12.6, Platelet Count 381, Mean Platelet Volume 9.5, Immature Granulocyte % (Auto) 0, Neutrophils (%) (Auto) 71, Lymphocytes (%) (Auto) 16, Monocytes (%) (Auto) 11, Eosinophils (%) (Auto) 1, Basophils (%) (Auto) 1, Neutrophils # (Auto) 7.0, Lymphocytes # (Auto) 1.6, Monocytes # (Auto) 1.1H, Eosinophils # (Auto) 0.1, Basophils # (Auto) 0.1, Immature Granulocyte # (Auto) 0.0, Erythrocyte Sedimentation Rate 17, Prothrombin Time 14.2, INR Comment 1.1, Sodium Level 142, Potassium Level 3.5L, Chloride Level 103, Carbon Dioxide Level 23, Anion Gap 16H, Blood Urea Nitrogen 21H, Creatinine 1.60H, Estimat Glomerular Filtration Rate 31, BUN/Creatinine Ratio 13, Glucose Level 185H, Calcium Level 10.1, Corrected Calcium 10.0, Magnesium Level 2.0, Total Bilirubin 0.5, Aspartate Amino Transf (AST/SGOT) 38H, Alanine Aminotransferase (ALT/SGPT) 43, Alkaline Phosphatase 89, Total Creatine Kinase 175H, Creatine Kinase MB 2.4, Myoglobin 85.8, Troponin I < 0.028, C- Reactive Protein High Sensitivity 1.65H, Total Protein 7.0, Albumin 4.1, Amylase Level 59, Lipase 39, Procalcitonin 0.07 02/22/22 18:08: Lactic Acid Level 1.54, Influenza Type A (RT-PCR) Not Detected, Influenza Type B (RT-PCR) Not Detected, SARS-CoV-2 RNA (RT-PCR) Not Detected 02/22/22 18:31: Urine Color YELLOW, Urine Clarity CLEAR, Urine pH 5.5, Urine Specific [place] <=1.005, Urine Protein NEGATIVE, Urine Glucose (UA) NEGATIVE, Urine Ketones NEGATIVE, Urine Nitrite NEGATIVE, Urine Bilirubin NEGATIVE, Urine Urobilinogen 0.2, Urine Leukocyte Esterase NEGATIVE, Urine RBC (Auto) NEGATIVE, Urine RBC NONE, Urine WBC NONE, Urine Squamous Epithelial Cells NONE, Urine Crystals NONE, Urine Bacteria NEGATIVE, Urine Casts NONE, Urine Mucus NEGATIVE, Urine Culture Indicated CULTURE PENDING 02/23/22 05:28: White Blood Count 8.7, Red Blood Count 4.52, Hemoglobin 14.0, Hematocrit 42, Mean Corpuscular Volume 92, Mean Corpuscular Hemoglobin 31, Mean Corpuscular Hemoglobin Concent 34, Red Cell Distribution Width 12.6, Platelet Count 360, Mean Platelet Volume 9.5, Immature Granulocyte % (Auto) 0, Neutrophils (%) (Auto) 70, Lymphocytes (%) (Auto) 16, Monocytes (%) (Auto) 12, Eosinophils (%) (Auto) 1, Basophils (%) (Auto) 1, Neutrophils # (Auto) 6.1, Lymphocytes # (Auto) 1.4, Monocytes # (Auto) 1.0, Eosinophils # (Auto) 0.1, Basophils # (Auto) 0.1, Immature Granulocyte # (Auto) 0.0, Sodium Level 146H, Potassium Level 3.7, Chloride Level 109H, Carbon Dioxide Level 25, Anion Gap 12, Blood Urea Nitrogen 14, Creatinine 1.44H, Estimat Glomerular Filtration Rate 35, BUN/Creatinine Ratio 10, Glucose Level 163H, Calcium Level 9.5, Corrected Calcium 9.7, Total Bilirubin 0.6, Aspartate Amino Transf (AST/SGOT) 32, Alanine Aminotransferase (ALT/SGPT) 40, Alkaline Phosphatase 84, Total Protein 6.4, Albumin 3.7 Assessment/Plan Assessment/Plan Assessment/Plan 86-year-old female with left lower quadrant abdominal pain Diverticulitis with microperforation Nausea. Maintain NPO status. Continue IV hydration. Pain control. Continue IV antibiotics. Continue antiemetics. GIOVANA STODDARD DO 02/23/220: Subjective Subjective/Events-last exam Patient lying in bed. Patient states she is just feeling ill may be a little bit worse than last night. Minimal pain in left lower quadrant. Still having nausea. No emesis. No other complaints at this time denies any fever sweats shortness of breath or chest pain at this time. Objective Exam General Appearance: No Apparent Distress, Anxious HEENT: PERRL/EOMI, Normal ENT Inspection Neck: Non Tender, Supple Respiratory: Chest Non Tender, No Accessory Muscle Use, No Respiratory Distress Cardiovascular: Regular Rate, Rhythm, No JVD Gastrointestinal: soft, tenderness (Left lower quadrant, minimal) Extremity: Normal Capillary Refill, Non Tender Neurologic/Psychiatric: Alert, Oriented x3 Skin: Normal Color, Warm/Dry Lymphatic: No Adenopathy Assessment/Plan Assessment/Plan Assessment/Plan 86-year-old female with left lower quadrant abdominal pain Diverticulitis with microperforation Nausea. Maintain NPO status. Continue IV hydration. Pain control. Continue IV antibiotics. Continue antiemetics. Exam minimal tenderness continue conservative management, likely clears tomorrow. Supervisory-Addendum Brief Verification & Attestation Participated in pt care: history, MDM, physical Personally performed: exam, history, MDM, supervision of care Care discussed with: Medical Student Procedures: n/a Results interpretation: Verified all documentation Verification and Attestation of Medical Student E/M Service A medical student performed and documented this service in my presence. I reviewed and verified all information documented by the medical student and made modifications to such information, when appropriate. I personally performed the physical exam and medical decision making. Giovana Stoddard, Feb 23, 2022,22:17 JAYY CARRANZA Feb 23, 2022 06:51 GIOVANA STODDARD DO Feb 23, 2022 22:17
--- NOTE | 2022-02-23 08:34 | History & Physical-Hospitalist ---
History of Present Illness HPI/Chief Complaint Patient is an 86-year-old female with past medical history of hypertension and hyperlipidemia who presented to the emergency department due to abdominal pain. She states her symptoms started roughly 1 week ago and she has been seen in her primary care doctor's office twice. She had a CT of her abdomen done which revealed diverticulitis and was started on oral antibiotics last week. Despite this that she continued to feel poorly and had increasing nausea. She had a repeat CT of her abdomen done as an outpatient yesterday which revealed microperforation. She was unaware of these results but continued to feel worse so came to the emergency department here in [place] for further evaluation. Labs revealed an MOOK as well and she was admitted for further management. This morning she denies any pain in her abdomen and mostly is just nauseous. She believes it is because she is unable to eat and is quite thirsty. She states she was already seen by Dr. Stoddard this morning and they are hopeful to avoid surgery as she is very concerned about the potential for an ostomy. Otherwise she has no complaints. Source: patient Date Seen 02/23/22 Time Seen by a Provider: 08:28 Attending Physician Maisha Esquivel MD PCP Admitting Physician: Marquise Salazar MD Attending Physician: Maisha Esquivel MD Referring Physician Date of Admission Feb 22, 2022 at 19:30 Home Medications & Allergies Home Medications Reviewed patient Home Medication Reconciliation performed by pharmacy medication reconciliations plastic surgery technician and/or nursing. Patients Allergies have been reviewed. Allergies Allergies Coded Allergies Sulfa (Sulfonamide Antibiotics) (Unverified Allergy, Unknown, 02/24/21) iodine (Unverified Allergy, Unknown, 02/24/21) tramadol (Unverified Allergy, Unknown, 02/24/21) BEULAH Inhibitors (Unverified Adverse Reaction, Unknown, 02/24/21) azithromycin (Unverified Adverse Reaction, Unknown, 02/24/21) cefdinir (Unverified Adverse Reaction, Unknown, 02/24/21) hydrocodone (Unverified Adverse Reaction, Unknown, 02/24/21) meperidine (Unverified Adverse Reaction, Unknown, 02/24/21) oxycodone (Unverified Adverse Reaction, Unknown, 02/24/21) Uncoded Allergies IV CONTRAST ( Allergy, Unknown, REDNESS, 02/22/22) REDNESS PER PT Past Rjgvamk-Fbjjwi-Yyhuvu Hx Patient Social History Employed/Student: retired Tobacco Use?: No Smoking Status: Never a Smoker Smokeless Tobacco Frequency: Never a User Use of E-Cig and/or Vaping dev: No Substance use?: No Alcohol Use?: No Pt feels they are or have been: No Immunizations Up To Date First/Initial COVID19 Vaccinat: 07/27 Second COVID19 Vaccination Jp: 08/24 Date of Pneumonia Vaccine: Jul 27, 2011 Seasonal Allergies Seasonal Allergies: Yes Current Status status: No status: No Advance Directives: Yes Advance Directive Location: Home Communicates: Verbally Primary Language: Kittitian Preferred Spoken Language: Kittitian Is interpretation needed?: No Sensory deficits: Vision impairment, Hearing impairment Implanted or Applied Medical D: None Past Medical History Surgeries: Appendectomy, Eye Surgery, Hysterectomy, Oophorectomy, Orthopedic, Tonsillectomy Hypertension 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 History: Hysterectomy, Menopausal Diverticulosis, Hiatal Hernia, Irritable Bowel Arthritis, Contracture Cataract Hearing Impairment: Hard of Hearing, Bilateral Hearing Aide Blood Disorders: No Family Medical History Reviewed Nursing Family Hx No Pertinent Family Hx PAST SURGICAL HISTORY: -BILATERAL CATARACTS -RIGHT EYE SURGERIES X 2 FOR PTERYGIUM -RIGHT WRIST/THUMB SURGERY -BILATERAL KNEE SCOPES/MENISCUS REPAIRS -HYSTERECTOMY/BILATERAL SALPINGO-OOPHORECTOMY/APPENDECTOMY Review of Systems Constitutional: No chills, No fever; weakness EENTM: no symptoms reported Respiratory: No cough, No short of breath Cardiovascular: no symptoms reported Gastrointestinal: abdominal pain; No constipation, No diarrhea; loss of a ppetite, nausea; No vomiting Genitourinary: no symptoms reported Musculoskeletal: no symptoms reported Skin: no symptoms reported Psychiatric/Neurological: No Symptoms Reported Physical Exam Physical Exam Vital Signs Vital Signs - First Documented 02/22/22 17:47 Temp 36.8 Pulse 92 Resp 16 B/P (MAP) 152/114 (127) Pulse Ox 97 O2 Delivery Room Air Capillary Refill : Less Than 3 Seconds Height, Weight, BMI Height: '" Weight: lbs. oz. kg; 24.62 BMI Method: General Appearance: No Apparent Distress, WD/WN, Thin HEENT: PERRL/EOMI; No Scleral Icterus (L), No Scleral Icterus (R); Other (Dry mucous membranes) Neck: Normal Inspection, Supple Respiratory: Lungs Clear, No Accessory Muscle Use, No Respiratory Distress Cardiovascular: Regular Rate, Rhythm, No JVD, No Murmur Gastrointestinal: Normal Bowel Sounds, Non Tender, Soft; No Distended, No Guarding, No Rebound Extremity: Normal Capillary Refill, No Calf Tenderness, No Pedal Edema Neurologic/Psychiatric: Alert, Oriented x3, Normal Mood/Affect Skin: Normal Color, Warm/Dry Results Results/Procedures Labs Laboratory Tests 02/22/22 17:52 02/23/22 05:28 Patient resulted labs reviewed. Imaging: Reviewed Imaging Report Imaging [facility], [place] NAME: BAYRON DARLING [facility] REC#: [id number] PT STATUS: REG CLI : 1935 PHYSICIAN: CHAY CAMPBELL APRN ADMIT DATE: 02/22/22/RAD FS Signed Date of Exam:02/22/22 CT ABDOMEN/PELVIS WO EXAMINATION: CT abdomen and pelvis without contrast. TECHNIQUE: Multiple contiguous axial images were obtained through the abdomen and pelvis without the use of intravenous contrast. All CT scans use one or more of the following dose optimizing techniques: automated exposure control, MA and/or KvP adjustment based on patient size and exam type or iterative reconstruction. HISTORY: Left lower quadrant pain. COMPARISON: 02/15/2022. FINDINGS: Limited views of the lower thorax are unremarkable. The liver is normal without focal lesion. There is no biliary ductal dilation. Gallbladder is normal. Pancreas is normal. Spleen is normal. Adrenal glands are normal. The kidneys are normal. There is no hydronephrosis. Urinary bladder is normal. There is improving mild diverticulitis of the descending colon. There are few foci of gas adjacent to the previously seen inflamed diverticulum which may represent a small amount of contained perforation. Overall, the inflammatory process has significantly improved and no abscess is seen. No free fluid or air. No abdominal or pelvic lymphadenopathy. Aorta is normal in caliber without aneurysm. There are no suspicious osseous lesions. IMPRESSION: 1. Improving diverticulitis of the descending colon with a few small locules of gas adjacent to the previously seen inflamed diverticulum, possibly representing a small contained perforation. However, the inflammation has significantly improved and no drainable fluid collection or intraperitoneal perforation is seen. Dictated by: Dictated on workstation # [id number] Dict: 02/22/22 1405 Trans: 02/22/22 1721 6 [id number] Interpreted by: ACOSTA GLORIA MD Electronically signed by: ACOSTA GLORIA MD 02/22/221720 [facility]. [place], [place] NAME: BAYRON DARLING [facility] REC#: [id number] PT STATUS: ADM IN : 1935 PHYSICIAN: BUFFY SWAIN DO ADMIT DATE: 02/22/22 Signed Date of Exam:02/22/22 CHEST 1 VIEW, AP/PA ONLY CLINICAL INDICATION: Patient with weakness. EXAM: Portable chest x-ray upright view. COMPARISON: None. FINDINGS: Lungs/pleura: Lungs are clear. There is no pneumothorax. There is no pleural effusion. Mediastinum: Unremarkable. Pulmonary vasculature: Unremarkable. Heart: Unremarkable. Bones/extrathoracic soft tissue: Unremarkable. IMPRESSION: There is no radiographic evidence of acute cardiopulmonary process. Dictated by: Dictated on workstation # [id number] Dict: 02/22/22 1837 Trans: 02/22/222014 ADRI [id number] Interpreted by: SURESH MENDEZ MD Electronically signed by: SURESH MENDEZ MD 02/22/222014 Assessment/Plan Admission Diagnosis Diverticulitis with microperforation Admission Status: Inpatient Order (span 2 midnights) Reason for Inpatient Admission: see below, failed outpt management Assessment and Plan Diverticulitis with microperforation Surgery consulted, appreciate recs Continue cipro and flagyl Fentanyl for pain Zofran for nausea So far pain well controlled and patient hopeful to avoid surgery- continue conservative measures NPO MOOK Health 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
[2022-02-23] MEDS: metroNIDAZOLE 500 MG/100 ML IVPB (PRE-MIX) IV SCH ×2 (08:43→20:57)
[2022-02-23] MEDS ORDERED: hydrALAZINE (APESOLINE) 20 MG/ML VIAL IV PRN (08:45)
[2022-02-23] MEDS ORDERED: POTA-160 PO (12:03)
[2022-02-23] MEDS ORDERED: CALC1TAB PO (12:03)
[2022-02-23] MEDS ORDERED: IBUP200C11 PO (12:03)
[2022-02-23] MEDS ORDERED: MULT-1029 PO (12:03)
[2022-02-23] MEDS ORDERED: METR-145 PO (12:03)
[2022-02-23] MEDS ORDERED: CIPR500T5 PO (12:03)
[2022-02-23] MEDS ORDERED: PROP10DR4 OU (12:03)
[2022-02-23] MEDS ORDERED: FLUT9.9S NSEACH (12:03)
[2022-02-23] MEDS ORDERED: MELO15TA39 PO (12:03)
[2022-02-23] MEDS ORDERED: OLOP2.5D12 OU (12:03)
[2022-02-23] MEDS ORDERED: CALC500T7 PO (12:03)
[2022-02-23] MEDS ORDERED: DOCU100T7 PO (12:03)
[2022-02-23] MEDS ORDERED: DIPH25TA65 PO (12:03)
[2022-02-23] MEDS ORDERED: OMEG12002 PO (12:03)
[2022-02-23] MEDS ORDERED: NAPR220T66 PO (12:03)
[2022-02-23] MEDS ORDERED: SODI50SP NSEACH (12:03)
[2022-02-23] MEDS ORDERED: FEXO180T84 PO (12:03)
[2022-02-23] MEDS: CIPROFLOXACIN 400 MG/D5W 200 ML (PRE-MIX) IV SCH (22:03)
[2022-02-24 03:32] VITALS: BP 157/75
[2022-02-24 05:45] LABS: HEMATOCRIT 41 % (35-52); HEMOGLOBIN 13.5 g/dL (11.5-16.0); MEAN CORPUSCULAR HEMOGLOBIN 31 pg (25-34); MEAN CORPUSCULAR HGB CONC 33 g/dL (32-36); MEAN CORPUSCULAR VOLUME 94 fL (80-99); MEAN PLATELET VOLUME 9.5 fL (9.0-12.2); PLATELET COUNT 346 10^3/uL (130-400); WHITE BLOOD COUNT 8.1 10^3/uL (4.3-11.0)
[2022-02-24 06:01] LABS: CREATININE SERUM 1.33 MG/DL (0.60-1.30); POTASSIUM 3.4 MMOL/L (3.6-5.0)
[2022-02-24] MEDS: D5 1/2 NS W/KCL 20 MEQ/L 1,000 ML IV SCH ×3 (06:11→21:18)
--- NOTE | 2022-02-24 07:39 | Progress Note - Surgery ---
JAYY CARRANZA 02/24/22 0739: Subjective Date Seen by a Provider: Feb 24, 2022 Time Seen by a Provider: 07:36 Subjective/Events-last exam Patient is awake and alert in bed this morning with her son in the room. Patient states that she is still having nausea and chills, but less than yesterday. Patient also reports some mild LLQ abdominal pain with slight tenderness on palpation. Patient has no new complaints. Review of Systems General: Chills; No Night Sweats HEENT: No Head Aches, No Visual Changes Pulmonary: No Dyspnea, No Cough Cardiovascular: No: Chest Pain, Palpitations Gastrointestinal: Nausea, Abdominal Pain (LLQ); No: Vomiting Genitourinary: No Dysuria, No Frequency Musculoskeletal: No: neck pain, shoulder pain Neurological: No: Numbness, Incoordination Focused Exam Lactate Level 02/22/22 18:08: Lactic Acid Level 1.54 Time of Focused Exam: 19:15 Objective Exam Vital Signs Date Time Temp Pulse Resp B/P (MAP) Pulse Ox O2 Delivery O2 Flow Rate FiO2 02/24/22 03:32 37.1 67 16 157/75 (102) 96 Room Air 02/24/22 01:00 57 02/23/22 23:49 37.3 75 18 138/80 (99) 95 Room Air 02/23/22 20:00 Room Air 02/23/22 19:07 37.0 71 16 155/74 (101) 96 Room Air 02/23/22 19:00 74 02/23/22 15:36 36.6 70 18 166/72 (103) 96 Room Air 02/23/22 13:00 73 02/23/22 12:00 36.9 71 16 147/67 (93) 95 Room Air 02/23/22 07:59 37.2 84 16 151/70 (97) 97 Room Air I & O 02/24/22 07:00 Intake Total 3400 ml Output Total 1950 ml Balance 1450 ml Capillary Refill : Less Than 3 Seconds General Appearance: No Apparent Distress, Anxious HEENT: PERRL/EOMI, Normal ENT Inspection Neck: Non Tender, Supple Respiratory: Chest Non Tender, No Accessory Muscle Use, No Respiratory Distress Cardiovascular: Regular Rate, Rhythm, No JVD Gastrointestinal: soft, tenderness (Left lower quadrant, minimal) Extremity: Normal Capillary Refill, Non Tender Neurologic/Psychiatric: Alert, Oriented x3 Skin: Normal Color, Warm/Dry Lymphatic: No Adenopathy Results Lab Laboratory Tests 02/24/22 05:15: White Blood Count 8.1, Red Blood Count 4.34, Hemoglobin 13.5, Hematocrit 41, Mean Corpuscular Volume 94, Mean Corpuscular Hemoglobin 31, Mean Corpuscular Hemoglobin Concent 33, Red Cell Distribution Width 12.9, Platelet Count 346, Mean Platelet Volume 9.5, Sodium Level 146H, Potassium Level 3.4L, Chloride Level 108H, Carbon Dioxide Level 26, Anion Gap 12, Blood Urea Nitrogen 11, Creatinine 1.33H, Estimat Glomerular Filtration Rate 39, BUN/Creatinine Ratio 8, Glucose Level 111H, Calcium Level 9.0 Microbiology 02/22/22 Blood Culture - Preliminary, Resulted No growth 02/22/22 Urine Culture - Final, Complete NO GROWTH Assessment/Plan Assessment/Plan Assessment/Plan 86-year-old female with left lower quadrant abdominal pain Diverticulitis with microperforation Nausea. Maintain NPO status. Continue IV hydration. Pain control. Continue IV antibiotics. Continue antiemetics. Continue conservative management. GIOVANA STODDARD DO 02/24/22 1709: Subjective Subjective/Events-last exam Patient feeling a little better today. She is have less nausea and chills. LLQ pain improved. Had a small bm. NPO currently. Denies fever sweats shortness of breath or chest pain. Son is at bedside. Objective Exam General Appearance: No Apparent Distress, Anxious HEENT: PERRL/EOMI, Normal ENT Inspection Neck: Non Tender, Supple Respiratory: Chest Non Tender, No Accessory Muscle Use, No Respiratory Distress Cardiovascular: Regular Rate, Rhythm, No JVD Gastrointestinal: soft, tenderness (Left lower quadrant, minimal) Extremity: Normal Capillary Refill, Non Tender Neurologic/Psychiatric: Alert, Oriented x3 Skin: Normal Color, Warm/Dry Lymphatic: No Adenopathy Assessment/Plan Assessment/Plan Assessment/Plan 86-year-old female with left lower quadrant abdominal pain Diverticulitis with microperforation Nausea. Will start clears Continue IV hydration. Pain control. Continue IV antibiotics. Continue antiemetics. Continue conservative management. Slowly improving. Supervisory-Addendum Brief Verification & Attestation Participated in pt care: history, MDM, physical Personally performed: exam, history, MDM, supervision of care Care discussed with: Medical Student Procedures: n/a Results interpretation: Verified all documentation Verification and Attestation of Medical Student E/M Service A medical student performed and documented this service in my presence. I reviewed and verified all information documented by the medical student and made modifications to such information, when appropriate. I personally performed the physical exam and medical decision making. Giovana Stoddard, Feb 24, 2022,17:09 JAYY CARRANZA Feb 24, 2022 07:39 GIOVANA STODDARD DO Feb 24, 2022 17:09
[2022-02-24 08:22] VITALS: BP 161/73
[2022-02-24] MEDS: metroNIDAZOLE 500 MG/100 ML IVPB (PRE-MIX) IV SCH ×2 (08:33→19:47)
--- NOTE | 2022-02-24 11:11 | Progress Note - Hospitalist ---
Subjective HPI/CC On Admission Date Seen by Provider: Feb 24, 2022 Patient is an 86-year-old female with past medical history of hypertension and hyperlipidemia who presented to the emergency department due to abdominal pain. She states her symptoms started roughly 1 week ago and she has been seen in her primary care doctor's office twice. She had a CT of her abdomen done which revealed diverticulitis and was started on oral antibiotics last week. Despite this that she continued to feel poorly and had increasing nausea. She had a repeat CT of her abdomen done as an outpatient yesterday which revealed microperforation. She was unaware of these results but continued to feel worse so came to the emergency department here in [place] for further evaluation. Labs revealed an MOOK as well and she was admitted for further management. This morning she denies any pain in her abdomen and mostly is just nauseous. She believes it is because she is unable to eat and is quite thirsty. She states she was already seen by Dr. Stoddard this morning and they are hopeful to avoid surgery as she is very concerned about the potential for an ostomy. Otherwise she has no complaints. Subjective/Events-last exam Pt reports doing well. No complaints. States Dr Stoddard is going to let her advance her diet today. Focused Exam Lactate Level 02/22/22 18:08: Lactic Acid Level 1.54 Time of Focused Exam: 19:15 Objective Exam Vital Signs Vital Signs Date Time Temp Pulse Resp B/P (MAP) Pulse Ox O2 Delivery O2 Flow Rate FiO2 02/24/22 08:22 37.3 67 18 161/73 (102) 97 Room Air Capillary Refill : Less Than 3 Seconds General Appearance: No Apparent Distress, WD/WN Respiratory: Lungs Clear, No Respiratory Distress Cardiovascular: Regular Rate, Rhythm, No Murmur Gastrointestinal: Normal Bowel Sounds, Soft; No Distended, No Guarding, No Tenderness Neurologic/Psychiatric: Alert, Oriented x3 Results/Procedures Lab Laboratory Tests 02/24/22 05:15 Patient resulted labs reviewed. 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
[2022-02-24] MEDS ORDERED: PEG OU PRN (11:30)
[2022-02-24] MEDS ORDERED: [UNRECOGNIZED DRUG - OTHER] OU PRN (11:30)
[2022-02-24] MEDS ORDERED: PROPYLENE GLYCOL OU PRN (11:30)
[2022-02-24] MEDS ORDERED: OLOPATADINE HCL OU PRN (11:30)
[2022-02-24] MEDS ORDERED: NON-FORMULARY MEDICATION 1 EA EA (Fluticasone Propionate (Flonase Allergy Relief) 1 SPRAY) NSEACH PRN (11:30)
[2022-02-24] MEDS ORDERED: SALINE NASAL SPRAY (OCEAN) 45 ML BTL NS PRN (11:30)
[2022-02-24] MEDS ORDERED: NON-FORMULARY MEDICATION 1 EA EA (Fexofenadine HCl (Allegra Allergy) 180 MG) PO SCH (11:30)
[2022-02-24] MEDS ORDERED: FLUTICASONE NASAL SPRAY (FLONASE) 16 GM BTL NS PRN (11:30)
[2022-02-24 11:40] VITALS: BP 161/73
[2022-02-24] MEDS ORDERED: ARTIFICAL TEARS 0.4 ML UNIT DOSE (REFRESH PLUS) OU PRN (11:45)
[2022-02-24] MEDS ORDERED: LORATADINE (CLARITIN) 10 MG TAB PO PRN (11:45)
[2022-02-24] MEDS ORDERED: OLOPATADINE 0.1 % OPHTH (PATANOL) 5 ML BTL OP PRN (12:00)
[2022-02-24 15:41] VITALS: BP 165/67
[2022-02-24] MEDS: KCL 10 MEQ TAB (MICRO K) PO SCH (17:17)
[2022-02-24 19:36] VITALS: BP 162/61
[2022-02-24] MEDS: AtorvaSTATin TABLET 10 MG TABLET PO SCH (19:45)
[2022-02-24] MEDS: CIPROFLOXACIN 400 MG/D5W 200 ML (PRE-MIX) IV SCH (21:18)
[2022-02-25] VITALS: BP 163/79
[2022-02-25 03:06] VITALS: BP 165/76
[2022-02-25] MEDS: D5 1/2 NS W/KCL 20 MEQ/L 1,000 ML IV SCH ×4 (05:53→21:24)
--- NOTE | 2022-02-25 06:51 | Progress Note - Surgery ---
JAYY CARRANZA 02/25/22 0651: Subjective Date Seen by a Provider: Feb 25, 2022 Time Seen by a Provider: 06:47 Subjective/Events-last exam Patient is awake and alert in bed this morning, no family at bedside. Patient reports that she is feeling a little better today with less chills and nausea. Patient reports some dyspepsia but states that she is not currently having any abdominal pain and is not tender on palpation. Patient has been tolerating clear liquids and states that she has a desire for more solid foods. Patient has been passing flatus and had three small BMs yesterday. Review of Systems General: Chills; No Night Sweats HEENT: No Visual Changes, No Eye Pain Pulmonary: No Dyspnea, No Cough Cardiovascular: No: Chest Pain, Palpitations Gastrointestinal: Nausea; No: Vomiting, Abdominal Pain Genitourinary: No Dysuria, No Frequency Musculoskeletal: No: neck pain, shoulder pain Neurological: No: Numbness, Incoordination Focused Exam Lactate Level 02/22/22 18:08: Lactic Acid Level 1.54 Time of Focused Exam: 19:15 Objective Exam Vital Signs Date Time Temp Pulse Resp B/P (MAP) Pulse Ox O2 Delivery O2 Flow Rate FiO2 02/25/22 03:06 36.8 68 16 165/76 (105) 96 Room Air 02/25/22 01:08 76 02/25/22 00:00 37.2 73 18 163/79 (107) 96 Room Air 02/24/22 20:00 Room Air 02/24/22 19:36 37.3 67 20 162/61 (94) 96 Room Air 02/24/22 19:12 75 02/24/22 15:41 36.7 63 18 165/67 (99) 97 Room Air 02/24/22 12:45 68 02/24/22 11:40 36.2 65 19 161/73 (102) 97 Room Air 02/24/22 08:22 37.3 67 18 161/73 (102) 97 Room Air 02/24/22 08:00 Room Air 02/24/22 07:00 66 I & O 02/25/22 07:00 Intake Total 2060 ml Output Total 3250 ml Balance -1190 ml Capillary Refill : Less Than 3 Seconds General Appearance: No Apparent Distress, Anxious HEENT: PERRL/EOMI, Normal ENT Inspection Neck: Non Tender, Supple Respiratory: Chest Non Tender, No Accessory Muscle Use, No Respiratory Distress Cardiovascular: Regular Rate, Rhythm, No JVD Gastrointestinal: non tender, soft Extremity: Normal Capillary Refill, Non Tender Neurologic/Psychiatric: Alert, Oriented x3 Skin: Normal Color, Warm/Dry Lymphatic: No Adenopathy Results Lab Microbiology 02/22/22 Blood Culture - Preliminary, Resulted No growth 02/22/22 Urine Culture - Final, Complete NO GROWTH Assessment/Plan Assessment/Plan Assessment/Plan 86-year-old female with left lower quadrant abdominal pain Diverticulitis with microperforation Nausea. Doing well with clear liquids, advance diet as tolerated. Continue IV hydration. Pain control. Continue IV antibiotics. Continue antiemetics. Continue conservative management. Slowly improving. GIOVANA STODDARD DO 02/25/221811: Subjective Subjective/Events-last exam Patient feeling about the same as yesterday may be elevated better. Patient states that she is not really having abdominal pain at this time. Her diet was advanced this morning. She is tolerating it okay. She has no nausea vomiting fever sweats chills shortness of breath or chest pain. She is had some bowel movements. No other complaints. Objective Exam General Appearance: No Apparent Distress, Anxious HEENT: Normal ENT Inspection Neck: Non Tender, Supple, Carotid Bruit Respiratory: Chest Non Tender, No Accessory Muscle Use, No Respiratory Distress Cardiovascular: Regular Rate, Rhythm, No JVD Gastrointestinal: non tender, soft Extremity: Normal Capillary Refill, Non Tender Neurologic/Psychiatric: Alert, Oriented x3 Skin: Normal Color, Warm/Dry Lymphatic: No Adenopathy Assessment/Plan Assessment/Plan Assessment/Plan 86-year-old female with left lower quadrant abdominal pain Diverticulitis with microperforation Nausea. Doing well advance diet as tolerated. Continue IV hydration. Pain control. Continue IV antibiotics. Continue antiemetics. Continue conservative management. Slowly improving, home soon. Supervisory-Addendum Brief Verification & Attestation Participated in pt care: history, MDM, physical Personally performed: exam, history, MDM, supervision of care Care discussed with: Medical Student Procedures: n/a Results interpretation: Verified all documentation Verification and Attestation of Medical Student E/M Service A medical student performed and documented this service in my presence. I reviewed and verified all information documented by the medical student and made modifications to such information, when appropriate. I personally performed the physical exam and medical decision making. Giovana Stoddard, Feb 25, 2022,18:12 JAYY CARRANZA Feb 25, 2022 06:51 GIOVANA STODDARD DO Feb 25, 2022 18:12
[2022-02-25 07:41] VITALS: BP 165/69
[2022-02-25] MEDS: amLODIPine 5 MG (NORVASC) TAB PO SCH (08:09)
[2022-02-25] MEDS: metroNIDAZOLE 500 MG/100 ML IVPB (PRE-MIX) IV SCH ×2 (08:09→19:41)
[2022-02-25] MEDS: KCL 10 MEQ TAB (MICRO K) PO SCH ×2 (08:09→18:12)
--- NOTE | 2022-02-25 09:55 | Progress Note - Hospitalist ---
Subjective HPI/CC On Admission Date Seen by Provider: Feb 25, 2022 Patient is an 86-year-old female with past medical history of hypertension and hyperlipidemia who presented to the emergency department due to abdominal pain. She states her symptoms started roughly 1 week ago and she has been seen in her primary care doctor's office twice. She had a CT of her abdomen done which revealed diverticulitis and was started on oral antibiotics last week. Despite this that she continued to feel poorly and had increasing nausea. She had a repeat CT of her abdomen done as an outpatient yesterday which revealed microperforation. She was unaware of these results but continued to feel worse so came to the emergency department here in [place] for further evaluation. Labs revealed an MOOK as well and she was admitted for further management. This morning she denies any pain in her abdomen and mostly is just nauseous. She believes it is because she is unable to eat and is quite thirsty. She states she was already seen by Dr. Stoddard this morning and they are hopeful to avoid surgery as she is very concerned about the potential for an ostomy. Otherwise she has no complaints. Subjective/Events-last exam Pt reports doing well. A little nauseated but thinks it's because she's hungry and would like more to eat than clears. Focused Exam Lactate Level 02/22/22 18:08: Lactic Acid Level 1.54 Time of Focused Exam: 19:15 Objective Exam Vital Signs Vital Signs Date Time Temp Pulse Resp B/P (MAP) Pulse Ox O2 Delivery O2 Flow Rate FiO2 02/25/22 08:00 Room Air 02/25/22 07:41 36.8 65 16 165/69 (101) 97 Capillary Refill : Less Than 3 Seconds General Appearance: No Apparent Distress, WD/WN Respiratory: Lungs Clear, No Respiratory Distress Cardiovascular: Regular Rate, Rhythm, No Murmur Gastrointestinal: Normal Bowel Sounds, Non Tender, Soft Neurologic/Psychiatric: Alert, Oriented x3 Results/Procedures Lab Patient resulted labs reviewed. 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
[2022-02-25 11:21] VITALS: BP 146/71
--- NOTE | 2022-02-25 14:31 | Physical Therapy Evaluation ---
PT Evaluation-General Medical Diagnosis Admission Date Feb 22, 2022 at 19:30 Medical Diagnosis: diverticulitis with perforation Onset Date: Feb 22, 2022 Therapy Diagnosis Therapy Diagnosis: debility/weakness Precautions Precautions/Isolations: Standard Precautions Referral Physician: Sulaiman Reason for Referral: Evaluation/Treatment Medical History Pertinent Medical History: HTN History of Falls (past yr): No Prior Surgery (last 100 days): No Current History ER secondary to abdominal pain ~1 week Reviewed History: Yes Social History Home: Single Level Current Living Status: Alone Prior Prior Level of Function SCALE: Activities may be completed with or without assistive devices. 1-Stojejhaqr-rrmzglu completes the activity by him/herself with no assistance from a helper. 5-Set-up or Clean-up Assistance-helper sets up or cleans up; patient completes activity. [place] assists only prior to or following the activity. 4-Supervision or Touching Assistance-helper provides verbal cues and/or touching/steadying and/or contact guard assistance as patient completes activity. Assistance may be provided throughout the activity or intermittently. 3-Partial/Moderate Assistance-helper does LESS THAN HALF the effort. [place] lifts, holds or supports trunk or limbs, but provides less than half the effort. 2-Substantial/Maximal Assistance-helper does MORE THAN HALF the effort. [place] lifts or holds trunk or limbs and provides more than half the effort. 2-Gvlxgukkd-pnwipv does ALL the effort. Patient does none of the effort to complete the activity. Or, the assistance of 2 or more helpers is required for the patient to complete the activity. If activity was not attempted, code reason: 7-Patient Refused. 9-Not Applicable-not attempted and the patient did not perform the activity before the current illness, exacerbation or injury. 10-Not Attempted due to Environmental Limitations-(lack of equipment, weather restraints, etc.). 88-Not Attempted due to Medical Conditions or Safety Concerns. Bed Mobility: 6 Transfers (B,C,W/C): 6 Gait: 6 Stairs: 6 Indoor Mobility (Ambulation): Independent Stairs: Independent Prior Devices Use: None PT Evaluation-Current Subjective Patient agrees to PT. Very [place]. Objective Patient Orientation: Normal For Age Attachments: IV ROM/Strength ROM Lower Extremities bilateral LE WFL Strength Lower Extremities 4-/5 grossly bilateral LE all planes Integumentary/Posture Integumentary refer to nursing notes Bowel Incontinence: No Bladder Incontinence: No Posture WFL Neuromuscular (Tone, Coordination, Reflexes) grossly intact Sensory Vision: Wears Glasses Hearing: Hearing Aid/Aides Transfers Sit to Lying (QC): 6 Lying to Sitting/Side of Bed(Q: 6 Sit to Stand (QC): 6 Gait Does the Patient Walk?: Yes Mode of Locomotion: Walk Anticipated Mode of Locomotion: Walk Walk 10 feet (QC): 6 Walk 50 ft with 2 Turns(QC): 6 Walk 150 ft (QC): 6 Distance: 400' Gait Assistive Device: FWW Comments/Gait Description slightly antalgic due to left posterior calf pain (physician notified) Balance Sitting Static: Normal Sitting Dynamic: Normal Standing Static: Normal Standing Dynamic: Normal Assessment/Needs Patient will be seen short term by skilled PT to ensure safe return to home at maximum LOF. Rehab Potential: Fair PT Short Term Goals Short Term Goals Time Frame: Feb 27, 2022 Roll Left & Right: 6 Sit to lyin Lying to sitting on side of be: 6 Sit to stand: 6 Chair/ubs-gj-lrihl transfer: 6 Toilet transfer: 6 Walk 10 feet: 6 Walk 50 feet with two turns: 6 Walk 150 feet: 6 PT Plan Treatment/Plan Treatment Plan: Continue Plan of Care Treatment Plan: Education, Functional Activity Sarah, Functional Strength, Gait, Safety, Therapeutic Exercise Treatment Duration: Feb 27, 2022 Frequency: 3 times per week Estimated Hrs Per Day: .25 hour per day Discharge Recommendations Therapy Discharge Recommendati: Home & Family Time/GCodes Time In: 1340 Time Out: 1400 Total Billed Treatment Time: 20 Total Billed Treatment 1 visit EVMod 20 min MIRIAM GAN PT Feb 25, 2022 14:31
[2022-02-25 15:46] VITALS: BP 146/76
--- NOTE | 2022-02-25 17:00 | Diagnostic Imaging Report ---
Procedure: US left lower extremity venous. Technique: Multiple real-time grayscale images were obtained over the left lower extremity in various projections. Additional duplex Doppler and color Doppler images were also obtained. Date: February 25, 2022. Indication: 86-year-old female, left lower extremity pain. Comparison: None. Findings: The left common femoral vein, left superficial femoral vein and left popliteal veins are all compressible with normal flow and response to augmentation. The visualized portions of the left greater saphenous vein and deep femoral vein are patent. The left posterior tibial and peroneal veins are patent. Impression: Negative for left lower extremity deep venous thrombosis. Dictated by: Dictated on workstation # [id number]
[2022-02-25 20:18] VITALS: BP 157/76
[2022-02-25] MEDS: CIPROFLOXACIN 400 MG/D5W 200 ML (PRE-MIX) IV SCH (21:24)
[2022-02-26] VITALS (7 sets, daily range): BP systolic 125–159; BP diastolic 61–79
[2022-02-26 05:47] LABS: HEMATOCRIT 42 % (35-52); HEMOGLOBIN 13.9 g/dL (11.5-16.0); MEAN CORPUSCULAR HEMOGLOBIN 31 pg (25-34); MEAN CORPUSCULAR HGB CONC 33 g/dL (32-36); MEAN CORPUSCULAR VOLUME 93 fL (80-99); MEAN PLATELET VOLUME 9.6 fL (9.0-12.2); PLATELET COUNT 303 10^3/uL (130-400); WHITE BLOOD COUNT 9.1 10^3/uL (4.3-11.0)
[2022-02-26 06:13] LABS: POTASSIUM 3.8 MMOL/L (3.6-5.0)
[2022-02-26 06:18] LABS: CREATININE SERUM 1.22 MG/DL (0.60-1.30)
--- NOTE | 2022-02-26 07:29 | Progress Note - Surgery ---
JAYY CARRANZA 02/26/22 0729: Subjective Date Seen by a Provider: Feb 26, 2022 Time Seen by a Provider: 07:25 Subjective/Events-last exam Patient is awake and alert this morning with her son at the bedside. Patient reports that she has been tolerating her current diet well, but did have an episode around 06:00 with some mild pain in her LLQ that lasted about 5-6 minutes. Patient reports that she has not had any abdominal pain otherwise, was slightly tender on palpation in the LLQ. Patient states that she continues to pass gas and have BMs. Patient reports that her nausea and chills continue to improve slightly. Review of Systems General: Chills; No Night Sweats HEENT: No Visual Changes, No Eye Pain Pulmonary: No Dyspnea, No Cough Cardiovascular: No: Chest Pain, Palpitations Gastrointestinal: Nausea, Abdominal Pain (LLQ 5-6 minute episode at 06:00) Genitourinary: No Dysuria, No Frequency Musculoskeletal: No: neck pain, shoulder pain Neurological: No: Numbness, Incoordination Focused Exam Time of Focused Exam: 19:15 Objective Exam Vital Signs Date Time Temp Pulse Resp B/P (MAP) Pulse Ox O2 Delivery O2 Flow Rate FiO2 02/26/22 04:03 36.7 73 18 145/79 (101) 95 Room Air 02/26/22 00:37 65 02/26/22 00:00 36.8 84 16 159/76 (103) 97 Room Air 02/25/22 20:18 36.5 71 18 157/76 (103) 96 Room Air 02/25/22 19:46 Room Air 02/25/22 18:37 91 02/25/22 15:46 36.5 84 16 146/76 (99) 96 Room Air 02/25/22 13:00 65 02/25/22 11:21 36.6 73 16 146/71 (96) 96 Room Air 02/25/22 08:00 Room Air 02/25/22 07:41 36.8 65 16 165/69 (101) 97 Room Air I & O 02/26/22 07:00 Intake Total 890 ml Output Total 2600 ml Balance -1710 ml Capillary Refill : Less Than 3 Seconds General Appearance: No Apparent Distress, Anxious HEENT: PERRL/EOMI, Normal ENT Inspection Neck: Non Tender, Supple Respiratory: Chest Non Tender, No Accessory Muscle Use, No Respiratory Distress Cardiovascular: Regular Rate, Rhythm, No JVD Gastrointestinal: soft, tenderness (minimal tenderness in LLQ) Extremity: Normal Capillary Refill, Non Tender Neurologic/Psychiatric: Alert, Oriented x3 Skin: Normal Color, Warm/Dry Lymphatic: No Adenopathy Results Lab Laboratory Tests 02/26/22 05:44: White Blood Count 9.1, Red Blood Count 4.52, Hemoglobin 13.9, Hematocrit 42, Mean Corpuscular Volume 93, Mean Corpuscular Hemoglobin 31, Mean Corpuscular Hemoglobin Concent 33, Red Cell Distribution Width 12.7, Platelet Count 303, Mean Platelet Volume 9.6, Sodium Level 146H, Potassium Level 3.8, Chloride Level 109H, Carbon Dioxide Level 22, Anion Gap 15H, Blood Urea Nitrogen 15, Creatinine 1.22, Estimat Glomerular Filtration Rate 43, BUN/Creatinine Ratio 12, Glucose Level 111H, Calcium Level 9.0 Microbiology 02/22/22 Blood Culture - Preliminary, Resulted No growth 02/22/22 Urine Culture - Final, Complete NO GROWTH Assessment/Plan Assessment/Plan Assessment/Plan 86-year-old female with left lower quadrant abdominal pain Diverticulitis with microperforation Nausea. Continue to advance diet as tolerated. Continue IV hydration. Pain control. Continue IV antibiotics. Continue antiemetics. Continue conservative management. GIOVANA STODDARD DO 02/26/22 4259: Subjective Subjective/Events-last exam Patient states she is doing okay today. She had a little bit of discomfort earlier this morning but otherwise has been doing fine. This is resolved. She is having bowel movements and bowel function. Patient tolerating diet. Just little frustrated with slow improvement. Denies any nausea vomiting fever sweats chills shortness of breath or chest pain at this time. Objective Exam General Appearance: No Apparent Distress, Anxious HEENT: PERRL/EOMI, Normal ENT Inspection Neck: Non Tender, Supple Respiratory: Chest Non Tender, No Accessory Muscle Use, No Respiratory Distress Cardiovascular: Regular Rate, Rhythm, No JVD Gastrointestinal: soft, tenderness (minimal tenderness in LLQ improved) Extremity: Normal Capillary Refill, Non Tender Neurologic/Psychiatric: Alert, Oriented x3 Skin: Normal Color, Warm/Dry Lymphatic: No Adenopathy Assessment/Plan Assessment/Plan Assessment/Plan 86-year-old female with left lower quadrant abdominal pain Diverticulitis with microperforation Nausea. Continue diet as tolerated. Continue IV hydration. Pain control. Continue IV antibiotics. Continue antiemetics. Continue conservative management. Would consider colonoscopy outpatient in about 6-8 weeks to further evaluate for colonic pathology. Supervisory-Addendum Brief Verification & Attestation Participated in pt care: history, MDM, physical Personally performed: exam, history, MDM, supervision of care Care discussed with: Medical Student Procedures: n/a Results interpretation: Verified all documentation Verification and Attestation of Medical Student E/M Service A medical student performed and documented this service in my presence. I reviewed and verified all information documented by the medical student and made modifications to such information, when appropriate. I personally performed the physical exam and medical decision making. Giovana Stoddard, Feb 26, 2022,23:19 JAYY CARRANZA Feb 26, 2022 07:29 GIOVANA STODDARD DO Feb 26, 2022 23:19
[2022-02-26] MEDS: KCL 10 MEQ TAB (MICRO K) PO SCH ×2 (08:14→18:09)
[2022-02-26] MEDS: metroNIDAZOLE 500 MG/100 ML IVPB (PRE-MIX) IV SCH ×2 (08:14→19:54)
[2022-02-26] MEDS: amLODIPine 5 MG (NORVASC) TAB PO SCH (08:14)
--- NOTE | 2022-02-26 09:28 | Physical Therapy Progress Note ---
Therapy Progress Note Patient observed up independently in hallway ambulation with family. PT to dismiss patient from services at this time. MIRIAM GAN PT Feb 26, 2022 09:28
--- NOTE | 2022-02-26 10:48 | Progress Note - Hospitalist ---
Subjective HPI/CC On Admission Date Seen by Provider: Feb 26, 2022 Patient is an 86-year-old female with past medical history of hypertension and hyperlipidemia who presented to the emergency department due to abdominal pain. She states her symptoms started roughly 1 week ago and she has been seen in her primary care doctor's office twice. She had a CT of her abdomen done which revealed diverticulitis and was started on oral antibiotics last week. Despite this that she continued to feel poorly and had increasing nausea. She had a repeat CT of her abdomen done as an outpatient yesterday which revealed microperforation. She was unaware of these results but continued to feel worse so came to the emergency department here in [place] for further evaluation. Labs revealed an MOOK as well and she was admitted for further management. This morning she denies any pain in her abdomen and mostly is just nauseous. She believes it is because she is unable to eat and is quite thirsty. She states she was already seen by Dr. Stoddard this morning and they are hopeful to avoid surgery as she is very concerned about the potential for an ostomy. Otherwise she has no complaints. Subjective/Events-last exam Pt reports feeling better overall but is frustrated with the slow going nature. Had a BM this morning and that has helped abd pain. Focused Exam Time of Focused Exam: 19:15 Objective Exam Vital Signs Vital Signs Date Time Temp Pulse Resp B/P (MAP) Pulse Ox O2 Delivery O2 Flow Rate FiO2 02/26/22 08:30 Room Air 02/26/22 07:52 36.9 86 18 125/61 (82) 97 Capillary Refill : Less Than 3 Seconds General Appearance: No Apparent Distress, WD/WN Respiratory: Lungs Clear, No Respiratory Distress Cardiovascular: Regular Rate, Rhythm, No Murmur Gastrointestinal: Normal Bowel Sounds, Non Tender, Soft Neurologic/Psychiatric: Alert, Oriented x3 Results/Procedures Lab Laboratory Tests 02/26/22 05:44 Patient resulted labs reviewed. 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
[2022-02-26] MEDS: AtorvaSTATin TABLET 10 MG TABLET PO SCH (19:54)
[2022-02-26] MEDS: CIPROFLOXACIN 400 MG/D5W 200 ML (PRE-MIX) IV SCH (21:01)
[2022-02-27 03:20] VITALS: BP 124/63
[2022-02-27 07:49] VITALS: BP 136/65
[2022-02-27] MEDS: KCL 10 MEQ TAB (MICRO K) PO SCH (08:34)
[2022-02-27] MEDS: amLODIPine 5 MG (NORVASC) TAB PO SCH (08:34)
[2022-02-27] MEDS: metroNIDAZOLE 500 MG/100 ML IVPB (PRE-MIX) IV SCH (08:35)
--- NOTE | 2022-02-27 08:57 | Progress Note - Surgery ---
Subjective Date Seen by a Provider: Feb 27, 2022 Time Seen by a Provider: 08:54 Subjective/Events-last exam Patient is awake and alert in her bed this morning with her son at the bedside. Patient reports that she had some mild dyspepsia last night after eating some mac and cheese. Patient does not have any abdominal pain but has some minimal tenderness in the LLQ on palpation. Patient has not had any nausea or vomiting, and continues to pass flatus and have BMs. Review of Systems General: Chills; No Night Sweats HEENT: No Head Aches, No Visual Changes Pulmonary: No Dyspnea, No Cough Cardiovascular: No: Chest Pain, Palpitations Gastrointestinal: No: Nausea, Vomiting Genitourinary: No Dysuria, No Frequency Musculoskeletal: No: neck pain, shoulder pain Neurological: No: Weakness, Numbness, Incoordination Focused Exam Time of Focused Exam: 19:15 Objective Exam Vital Signs Date Time Temp Pulse Resp B/P (MAP) Pulse Ox O2 Delivery O2 Flow Rate FiO2 02/27/22 07:49 37.1 79 18 136/65 (88) 95 Room Air 02/27/22 07:00 75 02/27/22 03:20 36.5 82 20 124/63 (83) 97 Room Air 02/27/22 01:00 80 02/26/22 23:38 37.1 79 18 132/62 (85) 96 Room Air 02/26/22 20:20 Room Air 02/26/22 19:02 37.4 89 17 159/67 (97) 96 Room Air 02/26/22 19:00 90 02/26/22 15:25 37.4 81 18 154/67 (96) 96 Room Air 02/26/22 12:26 89 02/26/22 11:21 37.2 77 18 142/65 (90) 97 Room Air I & O 02/27/22 07:00 Intake Total 1840 ml Output Total 2300 ml Balance -460 ml Capillary Refill : Less Than 3 Seconds General Appearance: No Apparent Distress, Anxious HEENT: PERRL/EOMI, Normal ENT Inspection Neck: Non Tender, Supple Respiratory: Chest Non Tender, No Accessory Muscle Use, No Respiratory Distress Cardiovascular: Regular Rate, Rhythm, No JVD Gastrointestinal: soft, tenderness (minimal tenderness in LLQ) Extremity: Normal Capillary Refill, Non Tender Neurologic/Psychiatric: Alert, Oriented x3 Skin: Normal Color, Warm/Dry Lymphatic: No Adenopathy Results Lab Microbiology 02/22/22 Blood Culture - Preliminary, Resulted No growth 02/22/22 Urine Culture - Final, Complete NO GROWTH Assessment/Plan Assessment/Plan Assessment/Plan 86-year-old female with left lower quadrant abdominal pain Diverticulitis with microperforation Nausea. Continue diet as tolerated. Continue IV hydration. Pain control. Continue IV antibiotics. Continue antiemetics. Continue conservative management. Would consider colonoscopy outpatient in about 6-8 weeks to further evaluate for colonic pathology. JAYY CARRANZA Feb 27, 2022 08:57
[2022-02-27 11:15] VITALS: BP 145/65
--- NOTE | 2022-02-27 11:23 | Discharge Summary ---
Diagnosis/Chief Complaint Date of Admission Feb 22, 2022 at 19:30 Date of Discharge Discharge Date: Feb 27, 2022 Admission Diagnosis Diverticulitis with microperforation Primary Care Maisha Esquivel MD Discharge Diagnosis (1) HLD (hyperlipidemia) (2) Essential (primary) hypertension (3) Hyperglycemia (4) MOOK (acute kidney injury) (5) Diverticulitis of colon with perforation Discharge Summary Discharge Physical Exam Allergies: Coded Allergies: Sulfa (Sulfonamide Antibiotics) (Unverified Allergy, Unknown, 02/24/21) iodine (Unverified Allergy, Unknown, 02/24/21) tramadol (Unverified Allergy, Unknown, 02/24/21) BEULAH Inhibitors (Unverified Adverse Reaction, Unknown, 02/24/21) azithromycin (Unverified Adverse Reaction, Unknown, 02/24/21) cefdinir (Unverified Adverse Reaction, Unknown, 02/24/21) hydrocodone (Unverified Adverse Reaction, Unknown, 02/24/21) meperidine (Unverified Adverse Reaction, Unknown, 02/24/21) oxycodone (Unverified Adverse Reaction, Unknown, 02/24/21) Uncoded Allergies: IV CONTRAST (Allergy, Unknown, REDNESS, 02/22/22) REDNESS PER PT Vitals & I&Os Vital Signs Date Time Temp Pulse Resp B/P (MAP) Pulse Ox O2 Delivery O2 Flow Rate FiO2 02/27/22 11:15 37.2 85 18 145/65 (91) 96 Room Air Hospital Course Labs (last 24 hrs) Microbiology 02/22/22 Blood Culture - Preliminary, Resulted No growth 02/22/22 Urine Culture - Final, Complete NO GROWTH Patient resulted labs reviewed. Imaging: Reviewed Imaging Report Discharge Home Medications: Active Scripts Active Reported Tums (Calcium Carbonate) 200 Mg Calcium (500 Mg) Tab.chew 200-400 Mg PO Q6H PRN Advil (Ibuprofen) 200 Mg Capsule 400-600 Mg PO Q8H PRN Aleve (Naproxen Sodium) 220 Mg Tablet 220 Mg PO Q8H PRN Stool Softener (Docusate Sodium) 100 Mg Tablet 100 Mg PO BID PRN Flonase Allergy Relief (Fluticasone Propionate) 50 Mcg/Actuation [place].susp 1 [place] NSEACH BID PRN [place] Saline (Sodium Chloride) 0.65 % [place] 1-2 Sprays NSEACH UD PRN [place] (Olopatadine HCl) 0.2 % Drops 1 Drop OU DAILY PRN Benadryl Allergy (Diphenhydramine HCl) 25 Mg Tablet 25 Mg PO Q6H PRN Corin Allergy (Fexofenadine HCl) 180 Mg Tablet 180 Mg PO ALLERGY SYMPTOMS Systane Gel Eye Drops (Propylene Glycol/Peg 400) 0.3 %-0.4 % Drops.gel 1-2 Drops OU UD PRN Centrum Silver Tablet (Multivit-Min/FA/Lycopene/Lut) 0.4 Mg-300 Mcg-250 Mcg Tablet 1 Each PO 1200 Fish Oil 1,200 mg Softgel ([place]-3/Dha/Epa/Fish Oil) 1,200 Mg (144 Mg-216 Mg) Capsule 2,400 Mg PO 1200 Caltrate 600 + D Tablet (Calcium Carbonate/Vitamin D3) 600 Mg Calcium-20 Mcg (800 Unit) Tablet 1 Each PO BID Meloxicam 15 Mg Tablet 15 Mg PO DAILY PRN Klor-Con 10 (Potassium Chloride) 10 Meq Tablet.er 20 Meq PO BID WITH MEALS TAKES 2 (10MEQ) TABS Metronidazole 500 Mg Tablet 500 Mg PO Q8H FILLED 02-15-2022 #30/10 DAY SUPPLY Ciprofloxacin HCl 500 Mg Tablet 500 Mg PO Q8H FILLED 02-15-2022 #30/10 DAY SUPPLY Atorvastatin Calcium 10 Mg Tablet 10 Mg PO MO,WE,FR @HS Amlodipine Besylate 5 Mg Tablet 5 Mg PO DAILY Instructions to patient/family Please see electronic discharge instructions given to patient. AREN HURST MD Feb 27, 2022 11:23
[2022-02-27] MEDS ORDERED: CIPR500T5 PO (11:24)
[2022-02-27] MEDS ORDERED: METR-145 PO (11:24)
--- NOTE | 2022-02-27 11:26 | Discharge Inst-Simple/Standard ---
Discharge Inst-Standard Discharge Medications New, Converted or Re-Newed RX: Transmitted to Pharmacy Patient Instructions/Follow Up Plan of Care/Instructions/FU: Please continue to take your medications as written. You can finish the prescription that you have for your antibiotics and then start the ones I sent to complete a week's worth of antibiotics. You do not need to order picker the Augmentin that was sent before you got admitted. Please follow up with your primary care doctor to follow up this hospital stay. Activity as Tolerated: Yes Discharge Diet: Soft Diet (advance slowly over the next few days) Return to The Hospital For: Chest pain, abdominal pain, bloating, increased heart rate, shortness of breath, fever, weakness, if you feel you are getting worse. AREN HURST MD Feb 27, 2022 11:26
== END 2022-02-27 12:25 | disposition home or self-care (01) | DRG 392 ==
LOC: EDUNIT# 17:39 → ER 17:43 → 4TH 19:30
PROVIDERS: ADMIT Internal Medicine; ATTEND Family Medicine
DX: K57.20 Diverticulitis of large intestine with perforation and abscess without bleeding (principal); N17.9 Acute kidney failure, unspecified; R73.9 Hyperglycemia, unspecified; I10 Essential (primary) hypertension; E78.5 Hyperlipidemia, unspecified; Z20.822 Contact with and (suspected) exposure to COVID-19; K57.90 Diverticulosis of intestine, part unspecified, without perforation or abscess without bleeding; K58.9 Irritable bowel syndrome, unspecified; M19.90 Unspecified osteoarthritis, unspecified site; Z79.82 Long term (current) use of aspirin; Z79.899 Other long term (current) drug therapy
CPT/HCPCS: 36415; 51702; 71045; 80048; 80053; 81000; 82150; 82550; 82553; 83605; 83690; 83735; 83874; 84145; 84484; 85025; 85027; 85610; 85652; 86141; 87040; 87088; 87636

== ENCOUNTER → 2022-02-22 | Outpatient (CLI) | payer MEDICARE ==
[~2022-02-22] MED LIST changes: +CALC1TAB PO; +CALC500T7 PO; +CIPR500T5 PO; +DIPH25TA65 PO; +DOCU100T7 PO; +FEXO180T84 PO; +FLUT9.9S NSEACH; +IBUP200C11 PO; +MELO15TA39 PO; +METR-145 PO; +NAPR220T66 PO; +OLOP2.5D12 OU; +OMEG12002 PO; +POTA-160 PO; +PROP10DR4 OU; +SODI50SP NSEACH
--- NOTE | 2022-02-22 14:13 | Diagnostic Imaging Report ---
EXAMINATION: CT abdomen and pelvis without contrast. TECHNIQUE: Multiple contiguous axial images were obtained through the abdomen and pelvis without the use of intravenous contrast. All CT scans use one or more of the following dose optimizing techniques: automated exposure control, MA and/or KvP adjustment based on patient size and exam type or iterative reconstruction. HISTORY: Left lower quadrant pain. COMPARISON: 02/15/2022. FINDINGS: Limited views of the lower thorax are unremarkable. The liver is normal without focal lesion. There is no biliary ductal dilation. Gallbladder is normal. Pancreas is normal. Spleen is normal. Adrenal glands are normal. The kidneys are normal. There is no hydronephrosis. Urinary bladder is normal. There is improving mild diverticulitis of the descending colon. There are few foci of gas adjacent to the previously seen inflamed diverticulum which may represent a small amount of contained perforation. Overall, the inflammatory process has significantly improved and no abscess is seen. No free fluid or air. No abdominal or pelvic lymphadenopathy. Aorta is normal in caliber without aneurysm. There are no suspicious osseous lesions. IMPRESSION: 1. Improving diverticulitis of the descending colon with a few small locules of gas adjacent to the previously seen inflamed diverticulum, possibly representing a small contained perforation. However, the inflammation has significantly improved and no drainable fluid collection or intraperitoneal perforation is seen. Dictated by: Dictated on workstation # [id number]
== END ==
LOC: RAD FS 13:39
PROVIDERS: ATTEND Registered Nurse Emergency
DX: K57.32 Diverticulitis of large intestine without perforation or abscess without bleeding (principal)
CPT/HCPCS: 74176

== ENCOUNTER → 2022-02-22 | Outpatient (CLI) | payer MEDICARE ==
[2022-02-22 11:45] LABS: BASOPHILS # (AUTO) 0.1 10^3/uL (0.0-0.1); BASOPHILS % (AUTO) 1 % (0-10); EOSINOPHILS # (AUTO) 0.1 10^3/uL (0.0-0.3); EOSINOPHILS % (AUTO) 1 % (0-10); HEMATOCRIT 41 % (35-52); LYMPHOCYTES # (AUTO) 1.4 10^3/uL (1.0-4.0); LYMPHOCYTES % (AUTO) 14 % (12-44); MEAN CORPUSCULAR HEMOGLOBIN 31 pg (25-34); MEAN CORPUSCULAR HGB CONC 34 g/dL (32-36); MEAN CORPUSCULAR VOLUME 93 fL (80-99); MEAN PLATELET VOLUME 9.2 fL (9.0-12.2); MONOCYTES % (AUTO) 10 % (0-12); NEUTROPHILS # (AUTO) 7.6 10^3/uL (1.8-7.8); NEUTROPHILS % (AUTO) 75 % (42-75); PLATELET COUNT 329 10^3/uL (130-400); WHITE BLOOD COUNT 10.2 10^3/uL (4.3-11.0)
[2022-02-22 12:08] LABS: POTASSIUM 3.8 MMOL/L (3.6-5.0)
[2022-02-22 12:09] LABS: ALBUMIN 3.9 GM/DL (3.2-4.5); BILIRUBIN,TOTAL 0.4 MG/DL (0.1-1.0); CALCIUM 9.7 MG/DL (8.5-10.1); CREATININE SERUM 1.6 MG/DL (0.60-1.30); TOTAL PROTEIN 6.7 GM/DL (6.4-8.2)
== END ==
LOC: LAB FS 11:19
PROVIDERS: ATTEND Registered Nurse Emergency
DX: E86.0 Dehydration (principal); R10.32 Left lower quadrant pain
CPT/HCPCS: 36415; 80053; 85025; 86141

== ENCOUNTER → 2022-08-26 | Outpatient (CLI) | payer MEDICARE ==
[~2022-08-26] MED LIST changes: +CALC1TAB PO; +CALC500T7 PO; +CIPR500T5 PO; +DIPH25TA65 PO; +DOCU100T7 PO; +FEXO180T84 PO; +FLUT9.9S NSEACH; +IBUP200C11 PO; +MELO15TA39 PO; +METR-145 PO; +NAPR220T66 PO; +OLOP2.5D12 OU; +OMEG12002 PO; +POTA-160 PO; +PROP10DR4 OU; +SODI50SP NSEACH
--- NOTE | 2022-08-26 15:43 | Diagnostic Imaging Report ---
INDICATION: Abdominal pain. FINDINGS: The lung bases are clear. The bowel gas pattern is nonspecific. There is no free air. There are no abnormal abdominal calcifications. There are mild degenerative changes in the spine IMPRESSION: Nonspecific bowel gas pattern. Dictated by: Dictated on workstation # [id number]
== END ==
LOC: RAD FS 11:49
PROVIDERS: ATTEND Family Medicine
DX: R10.30 Lower abdominal pain, unspecified (principal); I10 Essential (primary) hypertension
CPT/HCPCS: 74018